=== PATIENT | male | born 1945 | race Caucasian/White ===

== ENCOUNTER 2016-05-07 17:40 | Inpatient (IN) | payer MEDICARE, BC ==
[2016-05-07] MEDS ORDERED: VANCOMYCIN HCL INJ 1000 MG VIAL IV ONE (19:12)
[2016-05-07] MEDS ORDERED: CEFEPIME 1 GM/D5W RTU 50 ML IV ONE (19:13)
--- NOTE | 2016-05-07 19:14 | ER Document Report ---
ED Extremity Problem, Lower - General Chief Complaint: Leg Pain Stated Complaint: RIGHT LEG PAIN, REDNESS, SWELLING Time seen by provider: 19:10 Notes: Patient is a 70-year-old male that comes emergency department with chief complaint of right leg pain with redness to the lower part of the leg, patient has been dealing with this for some times but this is significantly worsened over the past 2 days with increased redness and pain. Patient denies fevers. Patient has a history of diabetes, cellulitis, has had sepsis secondary to cellulitis before. Patient is currently onset or oxime, has had Rocephin shots every other day for the past week. Tetanus is up-to-date within 5 years. Patient denies any other symptoms. TRAVEL OUTSIDE OF THE [place] IN LAST 30 DAYS: No - Related Data Allergies/Adverse Reactions: sulfamethoxazole [From Septra DS] Allergy (Mild, Verified 05/07/16 22:50) Pruritis trimethoprim [From Septra DS] Allergy (Mild, Verified 05/07/16 22:50) Pruritis codeine [Codeine] Allergy (Unknown, Verified 05/07/16 22:50) swelling Past Medical History - General Information source: Patient - Social History Smoking Status: Never Smoker Frequency of alcohol use: None Drug Abuse: None Lives with: Family Family History: Reviewed & Not Pertinent Patient has suicidal ideation: No Patient has homicidal ideation: No - Past Medical History Cardiac Medical History: Reports: Hx Hypercholesterolemia, Hx Hypertension Endocrine Medical History: Reports: Hx Diabetes Mellitus Type 2 Renal/ Medical History: Denies: Hx Peritoneal Dialysis Past Surgical History: Reports: Hx Orthopedic Surgery - left knee, bilateral rotator cuff - Immunizations Hx Diphtheria, Pertussis, Tetanus Vaccination: Yes Hx Pneumococcal Vaccination: 06/25/12 Review of Systems - Review of Systems Constitutional: No symptoms reported EENT: No symptoms reported Cardiovascular: No symptoms reported Respiratory: No symptoms reported Gastrointestinal: No symptoms reported Genitourinary: No symptoms reported Male Genitourinary: No symptoms reported Musculoskeletal: See HPI Skin: See HPI Hematologic/Lymphatic: No symptoms reported Neurological/Psychological: No symptoms reported Physical Exam - Vital signs Vitals: Resp 18 05/07/16 20:00 Interpretation: Normal - General General appearance: Appears well, Alert In distress: None - Patient obese, well-appearing, sitting up in the bed, conversational - HEENT Head: Normocephalic, Atraumatic Eyes: Normal Pupils: PERRL - Respiratory Respiratory status: No respiratory distress Chest status: Nontender Breath sounds: Normal. No: Decreased air movement, Wheezing Chest palpation: Normal - Cardiovascular Rhythm: Regular. No: Tachycardia Heart sounds: Normal auscultation, S1 appreciated, S2 appreciated Murmur: No - Abdominal Inspection: Normal Distension: No distension Bowel sounds: Normal Tenderness: Nontender. No: Tender Organomegaly: No organomegaly - Back Back: Normal, Nontender. No: Tender - Extremities General upper extremity: Normal inspection, Nontender, Normal color, Normal ROM , Normal temperature General lower extremity: Other - Right lower extremity with tenderness, slight edema, warm, erythematous. Erythema extending from just above the ankle and partially up the distal tibial area. Normal distal pulses and sensation, normal range of motion of the knee, unremarkable joint examinations of the ankle , knee, hip. - Neurological Neuro grossly intact: Yes Cognition: Normal Orientation: AAOx4 Lund Coma Scale Eye Opening: Spontaneous Lund Coma Scale Verbal: Oriented Justine Coma Scale Motor: Obeys Commands Lund Coma Scale Total: 15 Speech: Normal Motor strength normal: LUE, RUE, LLE, RLE Sensory: Normal - Psychological Associated symptoms: Normal affect, Normal mood - Skin Skin Temperature: Warm Skin Moisture: Dry Skin Color: Normal Course - Re-evaluation Re-evalutation: Physical exam consistent with lower extremity cellulitis, concern about a patient who has diabetes, recurrent cellulitis, and history of sepsis secondary to cellulitis. Concern also about patient's failure of outpatient therapy with multiple injections of Rocephin and current oral antibiotics. Patient given vancomycin, cefepime, will discuss with hospitalist. Patient reevaluated and no change or new complaints. 05/08/16 Hospitalist recommends service and because patient already been on cephalosporin. This was added. - Vital Signs Vital signs: Temp Pulse Resp BP Pulse Ox 97.8 F 72 16 132/54 H 98 05/08/16 05:03 05/08/16 05:03 05/08/16 05:03 05/08/16 05:03 05/08/16 05:03 - Laboratory Result Diagrams: 05/07/16 21:30 05/07/16 21:30 Laboratory results interpreted by me: 05/07/16 05/07/16 21:30 21:30 WBC 10.6 H RBC 4.34 L Hgb 12.6 L BUN 32 H Glucose 118 H Discharge - Discharge Clinical Impression: Cellulitis of right leg Condition: Stable Disposition: ADMITTED INPATIENT Admitting Provider: Hospitalist Unit Admitted: Telemetry
[2016-05-07] MEDS ORDERED: CEFEPIME 1 GM/D5W RTU 50 ML IV SCH (19:15)
[2016-05-07 21:40] LABS: ABSOLUTE BASOPHILS # (AUTO) 0.1 10^3/uL (0.0-0.2); ABSOLUTE EOSINOPHILS # (AUTO) 0.5 10^3/uL (0.0-0.6); ABSOLUTE LYMPHOCYTES (AUTO) 3.1 10^3/uL (0.5-4.7); ABSOLUTE MONOCYTES (AUTO) 1.2 10^3/uL (0.1-1.4); ABSOLUTE NEUT (AUTO) 5.7 10^3/uL (1.7-8.2); BASOPHILS % (AUTO) 0.7 % (0-2); EOSINOPHILS % (AUTO) 4.7 % (0-6); HEMOGLOBIN 12.6 g/dL (13.5-17.0); HGB HCT DIFFERENCE -0.2; LYMPHOCYTES % (AUTO) 29.7 % (13-45); MEAN CORPUSCULAR HGB CONC 33.2 g/dL (32.0-36.0); MEAN CORPUSCULAR VOLUME 87 fl (80-97); MONOCYTES % (AUTO) 11.4 % (3-13); RED BLOOD COUNT 4.34 10^6/uL (4.35-5.55); RED CELL DISTRIBUTION WIDTH 13.9 % (11.5-14.0); SEGMENTED NEUTROPHILS % (AUTO) 53.5 % (42-78); WHITE BLOOD COUNT 10.6 10^3/uL (4.0-10.5)
[2016-05-07 21:54] LABS: ALANINE AMINOTRANSFERASE 41 U/L (21-72); ALBUMIN 4.1 g/dL (3.5-5.0); ALKALINE PHOSPHATASE 44 U/L (38-126); ANION GAP 12 (5-19); ASPARTATE AMINO TRANSFERASE 28 U/L (17-59); BILIRUBIN,TOTAL 0.4 mg/dL (0.2-1.3); BLOOD UREA NITROGEN 32 mg/dL (7-20); CALCIUM 9.4 mg/dL (8.4-10.2); CARBON DIOXIDE 28 mmol/L (22-30); CHLORIDE 101 mmol/L (98-107); CREATININE RESULT 0.97 mg/dL (0.52-1.25); GLUCOSE 118 mg/dL (75-110); POTASSIUM 4.4 mmol/L (3.6-5.0); TOTAL PROTEIN 6.6 g/dL (6.3-8.2)
[2016-05-07] MEDS ORDERED: CEFEPIME 1 GM/D5W RTU 1 GM/50 ML RTUPB IV ONE (22:44)
[2016-05-08] MEDS ORDERED: PIPERACILLIN/TAZOBACTAM 4.5 GM VIAL IV ONE (02:56)
[2016-05-08] MEDS ORDERED: MAGNESIUM HYDROXIDE SUSP 30 ML UDCUP PO PRN (08:30)
[2016-05-08] MEDS ORDERED: ACETAMINOPHEN 325 MG TABLET PO PRN (08:30)
[2016-05-08] MEDS ORDERED: ONDANSETRON HCL INJ/PF 4 MG/2 ML SDV IV PRN (08:35)
[2016-05-08] MEDS ORDERED: DEXTROSE 50%-WATER 25 GM/50 ML DISP.SYRIN IV PRN ×2 (08:38)
[2016-05-08] MEDS ORDERED: GLUCAGON,HUMAN RECOMB 1 MG INJ IM PRN (08:38)
[2016-05-08] MEDS ORDERED: DEXTROSE 40% GEL 15 GM TUBE PO PRN ×2 (08:38)
[2016-05-08] MEDS ORDERED: VANCOMYCIN HCL 0 MG in DEXTROSE 5%-WATER 250 ML IV NR (08:45)
[2016-05-08] MEDS ORDERED: AMPICILLIN SODIUM/SULBACTAM NA 3 GM in NORMAL SALINE 100 ML IV ONE (09:45)
[2016-05-08] MEDS ORDERED: ENOXAPARIN SODIUM INJ 40 MG/0.4 ML DISP.SYRIN SUBCUT ONE (09:45)
[2016-05-08] MEDS: DOCUSATE SODIUM 100 MG CAPSULE PO SCH (10:26)
[2016-05-08] MEDS ORDERED: CYCLOBENZAPRINE HCL 10 MG TABLET PO PRN (10:58)
[2016-05-08] MEDS ORDERED: INSULIN ASPART 5 UNIT SUBCUT PRN (10:58)
[2016-05-08] MEDS ORDERED: (PENDING PHARMACY ID) (Lisinopril [Prinivil] 20 MG) PO SCH (11:00)
[2016-05-08] MEDS ORDERED: AMPICILLIN SODIUM/SULBACTAM NA 3 GM in NORMAL SALINE 100 ML IV SCH (12:00)
[2016-05-08] MEDS ORDERED: VENLAFAXINE HCL 75 MG CAP.SR.24H PO ONE (12:00)
[2016-05-08] MEDS ORDERED: ASPIRIN 81 MG TABLET, CHEWABLE PO ONE (12:00)
[2016-05-08] MEDS ORDERED: FUROSEMIDE 20 MG TABLET PO ONE (12:00)
--- NOTE | 2016-05-08 13:18 | PDOC H&P ---
History of Present Illness Admission Date/PCP: 05/08/16 08:32 Patient complains of: pain and swelling in Rt leg History of Present Illness: ROWAN ISLAS is a 70 [address] of Dr[address] Vickers who presented to the emergency department with progressive swelling and pain in the right lower extremity with some erythema. Apparently this started sometime around Thanks[place] and has been waxing and waning ever since. He's been on 2 rounds of antibiotics and gets some improvement with each but as soon as the antibiotics stopped the redness and swelling return. Shortly before the right lower extremity complaints he started with a red intensely pruritic, nonblanching rash tracks up his right thigh and has been treated with various topical creams and ointments and seen by dermatology who intends to biopsy the lesions some point in the near future. Patient had a very similar episode on his left lower extremity that required a seven-day stay in the ICU due to sepsis from cellulitis. No offending organism was ever identified he improved after 7 days of IV antibiotics and was sent home on an unknown type oral antibiotic. He is currently receiving Rocephin injections followed by cephalexin oral from his primary provider. He describes the pain as sharp stabbing radiating up toward his knee and the associated erythema and swelling. No fevers chills or other systemic symptoms. He is diabetic but noticed no difference in his usual blood sugars, he uses a Medtronic insulin pump with total daily insulin use of approximately 90 units. Evaluation in the emergency department shows a progressive cellulitis failing outpatient therapy we were asked to admit for further evaluation and management. Past Medical History Cardiac Medical History: Reports: Hyperlipidema, Hypertension Endocrine Medical History: Reports: Diabetes Mellitus Type 2 Skin Medical History: Reports: Other - Previous soft tissue infection of the left lower extremity. Past Surgical History Past Surgical History: Reports: Orthopedic Surgery - left knee, bilateral rotator cuff Social History Information Source: Patient Lives with: Family Smoking Status: Never Smoker Frequency of Alcohol Use: None Hx Recreational Drug Use: No Hx Prescription Drug Abuse: No - Advance Directive Resuscitation Status: Full Code Family History Family History: Reviewed & Not Pertinent Parental Family History Reviewed: Yes Children Family History Reviewed: Yes Sibling(s) Family History Reviewed.: Yes Medication/Allergy Home Medications: Aspirin [Aspirin 81 mg Chewable Tablet] 81 mg PO DAILY 06/24/12 Furosemide [Lasix 20 mg Tablet] 20 mg PO QAM 06/24/12 Insulin Aspart [Novolog Insulin (Aspart) 100 unit/mL] 5 unit SUBCUT ASDIR PRN Metformin HCl [Glumetza] 1,000 mg PO BID 06/24/12 Venlafaxine HCl ER [Effexor Xr 75 mg Cap.sr] 150 mg PO DAILY 06/24/12 Cefuroxime Axetil [Ceftin 500 mg Tablet] 1 tab PO BID 05/08/16 Clobetasol Propionate [Clobetasol Propionate Ointment] 1 applic TP BID 05/08/16 Cyclobenzaprine HCl [Flexeril 10 mg Tablet] 10 mg PO HSP PRN 05/08/16 Lisinopril [Prinivil] 20 mg PO DAILY 05/08/16 Allergies/Adverse Reactions: sulfamethoxazole [From Septra DS] Allergy (Mild, Verified 05/07/16 22:50) Pruritis trimethoprim [From Decra DS] Allergy (Mild, Verified 05/07/16 22:50) Pruritis codeine [Codeine] Allergy (Unknown, Verified 05/07/16 22:50) swelling Review of Systems Constitutional: ABSENT: chills, fever(s), headache(s), weight gain, weight loss Eyes: ABSENT: visual disturbances Ears: ABSENT: hearing changes Cardiovascular: PRESENT: edema - Right greater than left. ABSENT: chest pain, dyspnea on exertion, orthropnea, palpitations Respiratory: ABSENT: cough, hemoptysis Gastrointestinal: ABSENT: abdominal pain, constipation, diarrhea, hematemesis, hematochezia, nausea, vomiting Genitourinary: ABSENT: dysuria, hematuria Musculoskeletal: ABSENT: joint swelling Integumentary: PRESENT: rash - Right lower extremity. ABSENT: wounds Neurological: ABSENT: abnormal gait, abnormal speech, confusion, dizziness, focal weakness, syncope Psychiatric: ABSENT: anxiety, depression, homidical ideation, suicidal ideation Endocrine: ABSENT: cold intolerance, heat intolerance, polydipsia, polyuria Hematologic/Lymphatic: ABSENT: easy bleeding, easy bruising Physical Exam Vital Signs: Temp Pulse Resp BP Pulse Ox 98.0 F 82 18 137/55 H 98 05/08/16 11:24 05/08/16 11:24 05/08/16 11:24 05/08/16 11:24 05/08/16 11:24 Intake & Output 05/07/16 05/08/16 05/09/16 06:59 06:59 06:59 Intake Total 800 Balance 800 Weight 115 kg General appearance: PRESENT: no acute distress, obese, well-developed Head exam: PRESENT: atraumatic, normocephalic Eye exam: PRESENT: conjunctiva pink, EOMI, PERRLA. ABSENT: scleral icterus Mouth exam: PRESENT: moist, tongue midline Neck exam: ABSENT: carotid bruit, JVD, lymphadenopathy, thyromegaly Respiratory exam: PRESENT: clear to auscultation prabhakar. ABSENT: rales, rhonchi, wheezes Cardiovascular exam: PRESENT: RRR. ABSENT: diastolic murmur, rubs, systolic murmur Pulses: PRESENT: normal dorsalis pedis pul Vascular exam: PRESENT: normal capillary refill GI/Abdominal exam: PRESENT: normal bowel sounds, soft. ABSENT: distended, guarding, rebound, tenderness Rectal exam: PRESENT: deferred Extremities exam: PRESENT: full ROM. ABSENT: calf tenderness, clubbing, pedal edema Neurological exam: PRESENT: alert, awake, oriented to person, oriented to place , oriented to time, oriented to situation, CN II-XII grossly intact. ABSENT: motor sensory deficit Psychiatric exam: PRESENT: appropriate affect, normal mood. ABSENT: homicidal ideation, suicidal ideation Skin exam: PRESENT: dry, intact, rash - 1. Fine, lacy, well-circumscribed approximately 3-4 mm in greatest dimension, too numerous to count, erythematous and nonblanching nonpalpable rash tracking up the right lateral leg in a band. 2. Right lower extremity pretibial erythematous, hot to the touch, tender to touch cellulitis evident. No lesions or bullae., warm. ABSENT: cyanosis Results Laboratory Results: Labs- Last Values WBC 10.6 10^3/uL (4.0-10.5) H 05/07/16 21:30 RBC 4.34 10^6/uL (4.35-5.55) L 05/07/16 21:30 Hgb 12.6 g/dL (13.5-17.0) L 05/07/16 21:30 Hct 38.0 % (37.9-51.0) 05/07/16 21:30 MCV 87 fl (80-97) 05/07/16 21:30 MCH 29.0 pg (27.0-33.4) 05/07/16 21:30 MCHC 33.2 g/dL (32.0-36.0) 05/07/16 21:30 RDW 13.9 % (11.5-14.0) 05/07/16 21:30 Plt Count 213 10^3/uL (150-450) 05/07/16 21:30 Seg Neutrophils % 53.5 % (42-78) 05/07/16 21:30 Lymphocytes % 29.7 % (13-45) 05/07/16 21:30 Monocytes % 11.4 % (3-13) 05/07/16 21:30 Eosinophils % 4.7 % (0-6) 05/07/16: Basophils % 0.7 % (0-2) 05/07/16 21:30 Absolute Neutrophils 5.7 10^3/uL (1.7-8.2) 05/07/16 21: Absolute Lymphocytes 3.1 10^3/uL (0.5-4.7) 05/07/16 21:30 Absolute Monocytes 1.2 10^3/uL (0.1-1.4) 05/07/16 21:30 Absolute Eosinophils 0.5 10^3/uL (0.0-0.6) 05/07/16: Absolute Basophils 0.1 10^3/uL (0.0-0.2) 05/07/16 21:30 Sodium 141.0 mmol/L (137-145) 05/07/16 21:30 Potassium 4.4 mmol/L (3.6-5.0) 05/07/16 21:30 Chloride 101 mmol/L (98-107) 05/07/16 21:30 Carbon Dioxide 28 mmol/L (22-30) 05/07/16 21:30 Anion Gap 12 (5-19) 05/07/16 21:30 BUN 32 mg/dL (7-20) H 05/07/16 21:30 Creatinine 0.97 mg/dL (0.52-1.25) 05/07/16 21:30 Est GFR ( Amer) > 60 (>60) 05/07/16 21:30 Est GFR (Non-Af Amer) > 60 (>60) 05/07/16 21:30 Glucose 118 mg/dL (75-110) H 05/07/16 21:30 Calcium 9.4 mg/dL (8.4-10.2) 05/07/16 21:30 Total Bilirubin 0.4 mg/dL (0.2-1.3) 05/07/16 21:30 Direct Bilirubin 0.0 mg/dL (0.0-0.3) 05/07/16 21:30 AST 28 U/L (17-59) 05/07/16 21:30 ALT 41 U/L (21-72) 05/07/16 21:30 Alkaline Phosphatase 44 U/L (38-126) 05/07/16 21:30 C-Reactive Protein 5.7 mg/L (<10.0) 05/07/16 21: Total Protein 6.6 g/dL (6.3-8.2) 05/07/16 21: Albumin 4.1 g/dL (3.5-5.0) 05/07/16 21:30 Assessment & Plan - Diagnosis (1) Cellulitis of right leg Is this a current diagnosis for this admission?: YesPlan: Probable staph failing Rocephin therapy, unclear if MRSA. Given his diabetes though he is at risk for polymicrobial infection including gram-negative organisms. We'll start with Unasyn and vancomycin for the first 48 hours and taper per clinical course. Unfortunately there is no open wound or lesions to culture at this time. We'll send blood cultures. 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 Patient is well versed at managing his own sugars. (3) Hypertension Qualifiers: Hypertension type: essential hypertension Qualified Code(s): I10 - Essential (primary) hypertension Is this a current diagnosis for this admission?: YesPlan: Titrate his regimen as needed. (4) Morbid obesity with BMI of 40.0-44.9, adult Is this a current diagnosis for this admission?: Yes - Time Time Spent: 50 to 70 Minutes Anticipated discharge: Home Within: within 72 hours - Inpatient Certification Based on my medical assessment, after consideration of the patient's comorbidities, presenting symptoms, or acuity I expect that the services needed warrant INPATIENT care.: Yes I certify that my determination is in accordance with my understanding of Medicare's requirements for reasonable and necessary INPATIENT services [42 CFR 412.3e].: Yes Medical Necessity: Failure to Improve With Outpatient Therapy, Need for IV Antibiotics
[2016-05-08] MEDS ORDERED: LISINOPRIL 10 MG TABLET PO ONE (14:30)
[2016-05-08] MEDS: AMPICILLIN SODIUM/SULBACTAM NA 3 GM in NORMAL SALINE 100 ML IV SCH ×2 (15:55→20:27)
[2016-05-08] MEDS: VANCOMYCIN HCL 1,500 MG in DEXTROSE 5%-WATER 250 ML IV SCH (17:43)
[2016-05-08] MEDS: LACTOBACILLUS ACIDOPHILUS 250 MG TAB PO SCH (17:46)
[2016-05-09] MEDS: AMPICILLIN SODIUM/SULBACTAM NA 3 GM in NORMAL SALINE 100 ML IV SCH ×4 (04:17→20:52)
[2016-05-09 05:14] LABS: ABSOLUTE BASOPHILS # (AUTO) 0.1 10^3/uL (0.0-0.2); ABSOLUTE EOSINOPHILS # (AUTO) 0.5 10^3/uL (0.0-0.6); ABSOLUTE LYMPHOCYTES (AUTO) 3.1 10^3/uL (0.5-4.7); ABSOLUTE NEUT (AUTO) 4.9 10^3/uL (1.7-8.2); BASOPHILS % (AUTO) 0.8 % (0-2); HEMATOCRIT 39.3 % (37.9-51.0); HEMOGLOBIN 12.6 g/dL (13.5-17.0); HGB HCT DIFFERENCE -1.5; LYMPHOCYTES % (AUTO) 32.4 % (13-45); MEAN CORPUSCULAR HEMOGLOBIN 28.6 pg (27.0-33.4); MEAN CORPUSCULAR HGB CONC 32.2 g/dL (32.0-36.0); MEAN CORPUSCULAR VOLUME 89 fl (80-97); MONOCYTES % (AUTO) 10.4 % (3-13); RED BLOOD COUNT 4.42 10^6/uL (4.35-5.55); RED CELL DISTRIBUTION WIDTH 13.6 % (11.5-14.0); SEGMENTED NEUTROPHILS % (AUTO) 51.4 % (42-78); WHITE BLOOD COUNT 9.5 10^3/uL (4.0-10.5)
[2016-05-09] MEDS: VANCOMYCIN HCL 1,500 MG in DEXTROSE 5%-WATER 250 ML IV SCH ×2 (05:23→17:03)
[2016-05-09] MEDS: LANSOPRAZOLE 30 MG TAB.RAP.DR PO SCH (05:23)
[2016-05-09 05:42] LABS: ANION GAP 13 (5-19); BLOOD UREA NITROGEN 33 mg/dL (7-20); C-REACTIVE PROTEIN 11.2 mg/L (<10.0); CALCIUM 9.5 mg/dL (8.4-10.2); CARBON DIOXIDE 25 mmol/L (22-30); CHLORIDE 101 mmol/L (98-107); CREATININE RESULT 1.08 mg/dL (0.52-1.25); GLUCOSE 188 mg/dL (75-110); POTASSIUM 4.7 mmol/L (3.6-5.0); SODIUM 139.2 mmol/L (137-145)
[2016-05-09] MEDS: ENOXAPARIN SODIUM INJ 40 MG/0.4 ML DISP.SYRIN SUBCUT SCH (09:26)
[2016-05-09] MEDS: DOCUSATE SODIUM 100 MG CAPSULE PO SCH (09:27)
[2016-05-09] MEDS: LACTOBACILLUS ACIDOPHILUS 250 MG TAB PO SCH ×2 (09:28→17:06)
[2016-05-09] MEDS: FUROSEMIDE 20 MG TABLET PO SCH (09:29)
[2016-05-09] MEDS: LISINOPRIL 10 MG TABLET PO SCH (09:29)
[2016-05-09] MEDS: VENLAFAXINE HCL 75 MG CAP.SR.24H PO SCH (09:29)
[2016-05-09] MEDS: ASPIRIN 81 MG TABLET, CHEWABLE PO SCH (09:30)
[2016-05-09] MEDS ORDERED: METFORMIN HCL 1000 MG PO SCH (10:00)
--- NOTE | 2016-05-09 12:45 | PDOC PROGRESS REPORT ---
Subjective Progress Note for:: 05/09/16 Subjective:: Patient states she's feeling well He still has significant swelling in his right lower extremity It is minimally erythematous, there is minimal warmth to touch Patient appears very comfortable No fever no chills Physical Exam Vital Signs: Temp Pulse Resp BP Pulse Ox 97.7 F 83 16 138/53 H 99 05/09/16 11:12 05/09/16 11:12 05/09/16 11:12 05/09/16 11:12 05/09/16 11:12 Intake & Output 05/08/16 05/09/16 05/10/16 00:59 00:59 00:59 Intake Total 1250 669 Balance 1250 669 Weight 115 kg 114.9 kg General appearance: PRESENT: no acute distress Head exam: PRESENT: atraumatic, normocephalic Eye exam: PRESENT: conjunctiva pink, EOMI, PERRLA. ABSENT: scleral icterus Respiratory exam: PRESENT: clear to auscultation prabhakar. ABSENT: rales, rhonchi, wheezes Cardiovascular exam: PRESENT: RRR. ABSENT: diastolic murmur, rubs, systolic murmur Pulses: PRESENT: normal dorsalis pedis pul GI/Abdominal exam: PRESENT: normal bowel sounds, soft. ABSENT: distended, guarding, mass, organolmegaly, rebound, tenderness Extremities exam: PRESENT: other - Right lower extremity Shows at least 1-2+ edema Swelling of the calf Homans negative The skin is slightly warm to touch; there is minimal minimal erythema Neurological exam: PRESENT: alert, awake, oriented to person, oriented to place , oriented to time, oriented to situation, CN II-XII grossly intact. ABSENT: motor sensory deficit Results Laboratory Results: 05/09/16 04:19 05/09/16 04:19 05/09/16 05/09/16 04:19 04:19 WBC 9.5 RBC 4.42 Hgb 12.6 L Hct 39.3 MCV 89 MCH 28.6 MCHC 32.2 RDW 13.6 Plt Count 199 Seg Neutrophils % 51.4 Lymphocytes % 32.4 Monocytes % 10.4 Eosinophils % 5.0 Basophils % 0.8 Absolute Neutrophils 4.9 Absolute Lymphocytes 3.1 Absolute Monocytes 1.0 Absolute Eosinophils 0.5 Absolute Basophils 0.1 Sodium 139.2 Potassium 4.7 Chloride 101 Carbon Dioxide 25 Anion Gap 13 BUN 33 H Creatinine 1.08 Est GFR ( Amer) > 60 Est GFR (Non-Af Amer) > 60 Glucose 188 H Calcium 9.5 C-Reactive Protein 11.2 H Impressions: Venous Doppler Study 05/08/16 00:00 IMPRESSION: NO EVIDENCE DVT OR SVT IN THE RIGHT LEG. Assessment & Plan - Diagnosis (1) Stasis dermatitis of both legs Is this a current diagnosis for this admission?: YesPlan: With purplish discoloration of the skin Edema of the right lower extremity possibly secondary to stasis Discussed the case with Dr. 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 Vickers He failed outpatient therapy ? With the be candidate for PICC line and antibiotic therapy at home Reevaluate in a.m. Time Spent with patient: 25-34 minutes Within: within 48 hours
[2016-05-09] MEDS ORDERED: METFORMIN HCL 500 MG TABLET PO ONE (14:00)
[2016-05-09] MEDS: METFORMIN HCL 500 MG TABLET PO SCH (17:06)
[2016-05-09] MEDS: OXYCODONE-ACETAMINOPHEN 5-325 MG TABLET PO PRN (22:55)
[2016-05-10] MEDS: AMPICILLIN SODIUM/SULBACTAM NA 3 GM in NORMAL SALINE 100 ML IV SCH ×4 (03:30→21:31)
[2016-05-10] MEDS: LANSOPRAZOLE 30 MG TAB.RAP.DR PO SCH (06:10)
[2016-05-10] MEDS: VANCOMYCIN HCL 1,500 MG in DEXTROSE 5%-WATER 250 ML IV SCH ×2 (06:11→17:21)
[2016-05-10 06:37] LABS: CREATININE RESULT 1.02 mg/dL (0.52-1.25)
[2016-05-10] MEDS: METFORMIN HCL 500 MG TABLET PO SCH ×2 (09:24→17:21)
[2016-05-10] MEDS: ASPIRIN 81 MG TABLET, CHEWABLE PO SCH (09:24)
[2016-05-10] MEDS: LACTOBACILLUS ACIDOPHILUS 250 MG TAB PO SCH ×2 (09:24→17:22)
[2016-05-10] MEDS: FUROSEMIDE 20 MG TABLET PO SCH (09:24)
[2016-05-10] MEDS: VENLAFAXINE HCL 75 MG CAP.SR.24H PO SCH (09:25)
[2016-05-10] MEDS: LISINOPRIL 10 MG TABLET PO SCH (09:25)
[2016-05-10] MEDS: ENOXAPARIN SODIUM INJ 40 MG/0.4 ML DISP.SYRIN SUBCUT SCH (09:26)
[2016-05-10] MEDS: DOCUSATE SODIUM 100 MG CAPSULE PO SCH (09:26)
--- NOTE | 2016-05-10 17:07 | PDOC CONSULTATION ---
Consultation Consult Date: 05/10/16 Attending physician:: ROSI SORENSON Consult reason:: For some cellulitis and swelling in the right lower extremity. History of Present Illness Admission Date/PCP: 05/08/16 08:32 History of Present Illness: Swelling and redness and cellulitis in the right leg since 2015. Treated with several rounds of oral antibiotics. Temporary improvement only. Moderate pain. Many such prior episodes. Last of the left leg in the fall of 2014. Past Medical History Cardiac Medical History: Reports: Hyperlipidema, Hypertension Endocrine Medical History: Reports: Diabetes Mellitus Type 2 Skin Medical History: Reports: Other - Previous soft tissue infection of the left lower extremity. Past Surgical History Past Surgical History: Reports: Orthopedic Surgery - left knee, bilateral rotator cuff Social History Lives with: Family Smoking Status: Never Smoker Frequency of Alcohol Use: None Hx Recreational Drug Use: No Hx Prescription Drug Abuse: No - Advance Directive Resuscitation Status: Full Code Family History Family History: Reviewed & Not Pertinent Parental Family History Reviewed: No Children Family History Reviewed: No Sibling(s) Family History Reviewed.: No Medication/Allergy Home Medications: Aspirin [Aspirin 81 mg Chewable Tablet] 81 mg PO DAILY 06/24/12 Furosemide [Lasix 20 mg Tablet] 20 mg PO QAM 06/24/12 Insulin Aspart [Novolog Insulin (Aspart) 100 unit/mL] 5 unit SUBCUT ASDIR PRN Metformin HCl [Glumetza] 1,000 mg PO BID 06/24/12 Venlafaxine HCl ER [Effexor Xr 75 mg Cap.sr] 150 mg PO DAILY 06/24/12 Cefuroxime Axetil [Ceftin 500 mg Tablet] 1 tab PO BID 05/08/16 Clobetasol Propionate [Clobetasol Propionate Ointment] 1 applic TP BID 05/08/16 Cyclobenzaprine HCl [Flexeril 10 mg Tablet] 10 mg PO HSP PRN 05/08/16 Lisinopril [Prinivil] 20 mg PO DAILY 05/08/16 Allergies/Adverse Reactions: sulfamethoxazole [From Septra DS] Allergy (Mild, Verified 05/07/16 22:50) Pruritis trimethoprim [From Septra DS] Allergy (Mild, Verified 05/07/16 22:50) Pruritis codeine [Codeine] Allergy (Unknown, Verified 05/07/16 22:50) swelling Physical Exam Vital Signs: Temp Pulse Resp BP Pulse Ox 97.9 F 78 18 123/47 L 97 05/10/16 12:07 05/10/16 14:00 05/10/16 12:07 05/10/16 12:07 05/10/16 12:07 Intake & Output 05/09/16 05/10/16 05/11/16 06:59 06:59 06:59 Intake Total 1918 2702 Balance 1918 2702 Weight 114.9 kg 111.8 kg Additional comments: Constitutional: A well-developed well-nourished gentleman, moderately increased body mass index. No acute distress. Eyes: Mucous membranes pink and moist, sclerae anicteric, pupils react normally. Oropharynx: Dentition intact, tongue normal. Respiratory: No shortness of breath or wheezing. Breath sounds are normal and equal. Cardiac: Heart sounds normal, no murmurs, no increased JVP. Peripheral edema. Extremities: Upper extremities shows normal range of movement and pulses. Lower extremities show stasis dermatitis, hyperpigmentation, fragile thickened skin in the medial legs. On the right side there is erythema which seems to be receding. Psychiatric: judgment, memory, insight seem normal. Mood is normal, appropriate and pleasant Results Laboratory Results: 05/09/16 04:19 05/10/16 05:56 05/10/16 05:56 Creatinine 1.02 Est GFR ( Amer) > 60 Est GFR (Non-Af Amer) > 60 Impressions: Venous Doppler Study 05/08/16 00:00 IMPRESSION: NO EVIDENCE DVT OR SVT IN THE RIGHT LEG. Assessment & Plan - Diagnosis (1) Cellulitis of right leg Is this a current diagnosis for this admission?: Yes (2) Stasis dermatitis of both legs Is this a current diagnosis for this admission?: Yes (3) Diabetes mellitus type II, controlled Qualifiers: Diabetes mellitus complication status: without complication Diabetes mellitus medical terminologist insulin use: with medical terminologist use Qualified Code(s): E11.9 - Type 2 diabetes mellitus without complications Is this a current diagnosis for this admission?: Yes (4) Hypertension Qualifiers: Hypertension type: essential hypertension Qualified Code(s): I10 - Essential (primary) hypertension Is this a current diagnosis for this admission?: Yes (5) Morbid obesity with BMI of 40.0-44.9, adult Is this a current diagnosis for this admission?: Yes - Plan Summary Plan Summary: In this patient with several bouts of cellulitis, stasis dermatitis, venous hypertension the following is recommended. #1 compression stockings 20-30 mmHg , knee-high. All day and removed in the evenings. #2 he will benefit from sequential compression and we will try to order to this for him once he is out of hospital and in office. In the meanwhile sequential compression devices are to be used in hospital. #3 he should be able to be discharged within the next day or 2 and I will continue a course of antibiotics for 10 days. #4 attention to diabetes, this should be well controlled. #5 optimal weight control. #6 follow up in office by appointment after discharge.
--- NOTE | 2016-05-10 18:32 | PDOC PROGRESS REPORT ---
Subjective Progress Note for:: 05/10/16 Subjective:: feeling well swelling till persistent of right lower extremity , but less pain Physical Exam Vital Signs: Temp Pulse Resp BP Pulse Ox 97.6 F 80 18 117/48 L 99 05/10/16 16:03 05/10/16 16:03 05/10/16 16:03 05/10/16 16:03 05/10/16 16:03 Intake & Output 05/09/16 05/10/16 05/11/16 00:59 00:59 00:59 Intake Total 1250 2717 1402 Balance 1250 2717 1402 Weight 115 kg 114.9 kg 111.8 kg General appearance: PRESENT: no acute distress, well-developed, well-nourished Head exam: PRESENT: atraumatic, normocephalic Eye exam: PRESENT: conjunctiva pink, EOMI, PERRLA. ABSENT: scleral icterus Ear exam: PRESENT: normal external ear exam Mouth exam: PRESENT: moist, tongue midline Neck exam: ABSENT: carotid bruit, JVD, lymphadenopathy, thyromegaly Respiratory exam: PRESENT: clear to auscultation prabhakar. ABSENT: rales, rhonchi, wheezes Cardiovascular exam: PRESENT: RRR. ABSENT: diastolic murmur, rubs, systolic murmur Pulses: PRESENT: normal dorsalis pedis pul Vascular exam: PRESENT: normal capillary refill GI/Abdominal exam: PRESENT: normal bowel sounds, soft. ABSENT: distended, guarding, mass, organolmegaly, rebound, tenderness Rectal exam: PRESENT: deferred Extremities exam: PRESENT: full ROM, +1 edema, other - edema right lower extremity calf is tense stasis dematitis skin changes. ABSENT: calf tenderness, clubbing, pedal edema Neurological exam: PRESENT: alert, awake, oriented to person, oriented to place , oriented to time, oriented to situation, CN II-XII grossly intact. ABSENT: motor sensory deficit Psychiatric exam: PRESENT: appropriate affect, normal mood. ABSENT: homicidal ideation, suicidal ideation Skin exam: PRESENT: dry, intact, warm. ABSENT: cyanosis, rash Results Laboratory Results: 05/09/16 04:19 05/10/16 05:56 05/10/16 05:56 Creatinine 1.02 Est GFR ( Amer) > 60 Est GFR (Non-Af Amer) > 60 Impressions: Venous Doppler Study 05/08/16 00:00 IMPRESSION: NO EVIDENCE DVT OR SVT IN THE RIGHT LEG. Assessment & Plan - Diagnosis (1) Stasis dermatitis of both legs Is this a current diagnosis for this admission?: Yes (2) Cellulitis of right leg Is this a current diagnosis for this admission?: Yes (3) DVT prophylaxis Is this a current diagnosis for this admission?: Yes (4) Diabetes mellitus type II, controlled Qualifiers: Diabetes mellitus complication status: without complication Diabetes mellitus nursing home insulin use: with nursing home use Qualified Code(s): E11.9 - Type 2 diabetes mellitus without complications Is this a current diagnosis for this admission?: Yes (5) Hypertension Qualifiers: Hypertension type: essential hypertension Qualified Code(s): I10 - Essential (primary) hypertension Is this a current diagnosis for this admission?: Yes (6) Morbid obesity with BMI of 40.0-44.9, adult Is this a current diagnosis for this admission?: Yes - Time Time Spent with patient: appreciate Dr Vickers note will discharge in 24- 48 hours Time Spent with patient: 25-34 minutes Within: within 24 hours
[2016-05-10] MEDS: OXYCODONE-ACETAMINOPHEN 5-325 MG TABLET PO PRN (21:31)
[2016-05-11] MEDS: AMPICILLIN SODIUM/SULBACTAM NA 3 GM in NORMAL SALINE 100 ML IV SCH ×2 (02:26→09:48)
[2016-05-11] MEDS: LANSOPRAZOLE 30 MG TAB.RAP.DR PO SCH (05:59)
[2016-05-11] MEDS: VANCOMYCIN HCL 1,500 MG in DEXTROSE 5%-WATER 250 ML IV SCH (05:59)
[2016-05-11 09:32] VITALS: BP 125/62
[2016-05-11] MEDS: LISINOPRIL 10 MG TABLET PO SCH (09:47)
[2016-05-11] MEDS: METFORMIN HCL 500 MG TABLET PO SCH (09:47)
[2016-05-11] MEDS: ASPIRIN 81 MG TABLET, CHEWABLE PO SCH (09:47)
[2016-05-11] MEDS: VENLAFAXINE HCL 75 MG CAP.SR.24H PO SCH (09:47)
[2016-05-11] MEDS: FUROSEMIDE 20 MG TABLET PO SCH (09:47)
[2016-05-11] MEDS: LACTOBACILLUS ACIDOPHILUS 250 MG TAB PO SCH (09:48)
[2016-05-11] MEDS: DOCUSATE SODIUM 100 MG CAPSULE PO SCH (09:48)
[2016-05-11] MEDS: ENOXAPARIN SODIUM INJ 40 MG/0.4 ML DISP.SYRIN SUBCUT SCH (09:48)
--- NOTE | 2016-05-11 10:40 | PDOC DISCHARGE SUMMARY ---
General - Admit/Disc Date/PCP Admission Date/Primary Care Provider: 05/08/16 08:32 Discharge Date: 05/11/16 - Discharge Diagnosis (1) Stasis dermatitis of both legs Is this a current diagnosis for this admission?: Yes (2) Cellulitis of right leg Is this a current diagnosis for this admission?: Yes (3) DVT prophylaxis Is this a current diagnosis for this admission?: Yes (4) Diabetes mellitus type II, controlled Is this a current diagnosis for this admission?: Yes (5) Hypertension Is this a current diagnosis for this admission?: Yes (6) Morbid obesity with BMI of 40.0-44.9, adult Is this a current diagnosis for this admission?: Yes - Additional Information Resuscitation Status: Full Code Discharge Diet: Diabetic Discharge Activity: Activity As Tolerated Home Medications: Aspirin [Aspirin 81 mg Chewable Tablet] 81 mg PO DAILY 06/24/12 Furosemide [Lasix 20 mg Tablet] 20 mg PO QAM 06/24/12 Insulin Aspart [Novolog Insulin (Aspart) 100 unit/mL] 5 unit SUBCUT ASDIR PRN Metformin HCl [Glumetza] 1,000 mg PO BID 06/24/12 Venlafaxine HCl ER [Effexor Xr 75 mg Cap.sr] 150 mg PO DAILY 06/24/12 Cefuroxime Axetil [Ceftin 500 mg Tablet] 1 tab PO BID 05/08/16 Clobetasol Propionate [Clobetasol Propionate Ointment] 1 applic TP BID 05/08/16 Cyclobenzaprine HCl [Flexeril 10 mg Tablet] 10 mg PO HSP PRN 05/08/16 Lisinopril [Prinivil] 20 mg PO DAILY 05/08/16 Acidoph/L.bulg/Bif.b/S.thermop [Bacid Caplet] 1 each PO BID #20 tablet 05/11/16 Amox Tr/Potassium Clavulanate [Augmentin 875-125 mg Tablet] 1 tab PO BID #20 tablet 05/11/16 History of Present Illness Patient complains of: Swelling and pain right lower extremity History of Present Illness: ROWAN ISLAS is a 70 year old male of Dr. Vickers who presented to the emergency department with progressive swelling and pain in the right lower extremity with some erythema. Apparently this started sometime around and has been waxing and waning ever since. He's been on 2 rounds of antibiotics and gets some improvement with each but as soon as the antibiotics stopped the redness and swelling return. Shortly before the right lower extremity complaints he started with a red intensely pruritic, nonblanching rash tracks up his right thigh and has been treated with various topical creams and ointments and seen by dermatology who intends to biopsy the lesions some point in the near future. Patient had a very similar episode on his left lower extremity that required a seven-day stay in the ICU due to sepsis from cellulitis. No offending organism was ever identified he improved after 7 days of IV antibiotics and was sent home on an unknown type oral antibiotic. He is currently receiving Rocephin injections followed by cephalexin oral from his primary provider. He describes the pain as sharp stabbing radiating up toward his knee and the associated erythema and swelling. No fevers chills or other systemic symptoms. He is diabetic but noticed no difference in his usual blood sugars, he uses a [employer] insulin pump with total daily insulin use of approximately 90 units. Evaluation in the emergency department shows a progressive cellulitis failing outpatient therapy we were asked to admit for further evaluation and management. Hospital Course Hospital Course: Patient is a 70-year-old male was admitted with cellulitis right lower extremity Patient had a history of recurrent cellulitis and stasis dermatitis Upon evaluation in the ED the neck was found swollen with some erythema broad-spectrum antibiotics were initiated with Unasyn and vancomycin. Patient had negative DVT studies He improved somewhat with antibiotics the leg remains swollen but the redness disappeared He was evaluated by Dr. Ericka Vickers and was found well enough to be discharged on by mouth antibiotics And referred to the office as an outpatient Patient was advised to wear teds and keep his lower extremity elevated when he sits Patient did not have a fever or leukocytosis Physical Exam Vital Signs: Temp Pulse Resp BP Pulse Ox 97.4 F 71 16 125/62 100 05/11/16 09:25 05/11/16 09:25 05/11/16 09:25 05/11/16 09:25 05/11/16 09:25 Intake & Output 05/10/16 05/11/16 05/12/16 00:59 00:59 00:59 Intake Total 5849 2154 710 Balance 2718 2716 710 Weight 114.9 kg 111.8 kg 113.3 kg General appearance: PRESENT: no acute distress, well-developed, well-nourished Head exam: PRESENT: atraumatic, normocephalic Eye exam: PRESENT: conjunctiva pink, EOMI, PERRLA. ABSENT: scleral icterus Ear exam: PRESENT: normal external ear exam Mouth exam: PRESENT: moist, tongue midline Neck exam: ABSENT: carotid bruit, JVD, lymphadenopathy, thyromegaly Respiratory exam: PRESENT: clear to auscultation prabhakar. ABSENT: rales, rhonchi, wheezes Cardiovascular exam: PRESENT: RRR. ABSENT: diastolic murmur, rubs, systolic murmur Pulses: PRESENT: normal dorsalis pedis pul Vascular exam: PRESENT: normal capillary refill GI/Abdominal exam: PRESENT: normal bowel sounds, soft. ABSENT: distended, guarding, mass, organolmegaly, rebound, tenderness Rectal exam: PRESENT: deferred Extremities exam: PRESENT: full ROM, other - Right lower extremity still shows some swelling in ;the calf is tense on palpation The skin shows hyperpigmentation on zhu. ABSENT: calf tenderness, clubbing, pedal edema Neurological exam: PRESENT: alert, awake, oriented to person, oriented to place , oriented to time, oriented to situation, CN II-XII grossly intact. ABSENT: motor sensory deficit Psychiatric exam: PRESENT: appropriate affect, normal mood. ABSENT: homicidal ideation, suicidal ideation Skin exam: PRESENT: dry, intact, warm. ABSENT: cyanosis, rash Results Laboratory Results: 05/09/16 04:19 05/10/16 05:56 Laboratory WBC 9.5 10^3/uL (4.0-10.5) 05/09/16 04:19 RBC 4.42 10^6/uL (4.35-5.55) 05/09/16 04:19 Hgb 12.6 g/dL (13.5-17.0) L 05/09/16 04:19 Hct 39.3 % (37.9-51.0) 05/09/16 04:19 MCV 89 fl (80-97) 05/09/16 04:19 MCH 28.6 pg (27.0-33.4) 05/09/16 04:19 MCHC 32.2 g/dL (32.0-36.0) 05/09/16 04:19 RDW 13.6 % (11.5-14.0) 05/09/16 04:19 Plt Count 199 10^3/uL (150-450) 05/09/16 04:19 Seg Neutrophils % 51.4 % (42-78) 05/09/16 04:19 Lymphocytes % 32.4 % (13-45) 05/09/16 04:19 Monocytes % 10.4 % (3-13) 05/09/16 04:19 Eosinophils % 5.0 % (0-6) 05/09/16 04:19 Basophils % 0.8 % (0-2) 05/09/16 04:19 Absolute Neutrophils 4.9 10^3/uL (1.7-8.2) 05/09/16 04:19 Absolute Lymphocytes 3.1 10^3/uL (0.5-4.7) 05/09/16 04:19 Absolute Monocytes 1.0 10^3/uL (0.1-1.4) 05/09/16 04:19 Absolute Eosinophils 0.5 10^3/uL (0.0-0.6) 05/09/16 04:19 Absolute Basophils 0.1 10^3/uL (0.0-0.2) 05/09/16 04:19 Sodium 139.2 mmol/L (137-145) 05/09/16 04:19 Potassium 4.7 mmol/L (3.6-5.0) 05/09/16 04:19 Chloride 101 mmol/L (98-107) 05/09/16 04:19 Carbon Dioxide 25 mmol/L (22-30) 05/09/16 04:19 Anion Gap 13 (5-19) 05/09/16 04:19 BUN 33 mg/dL (7-20) H 05/09/16 04:19 Creatinine 1.02 mg/dL (0.52-1.25) 05/10/16 05:56 Est GFR ( Amer) > 60 (>60) 05/10/16 05:56 Est GFR (Non-Af Amer) > 60 (>60) 05/10/16 05:56 Glucose 188 mg/dL (75-110) H 05/09/16 04:19 POC Glucose 159 mg/dL (70-110) H 05/11/16 06:02 Calcium 9.5 mg/dL (8.4-10.2) 05/09/16 04:19 Total Bilirubin 0.4 mg/dL (0.2-1.3) 05/07/16 21:30 Direct Bilirubin 0.0 mg/dL (0.0-0.3) 05/07/16 21:30 AST 28 U/L (17-59) 05/07/16 21:30 ALT 41 U/L (21-72) 05/07/16 21:30 Alkaline Phosphatase 44 U/L (38-126) 05/07/16 21:30 C-Reactive Protein 11.2 mg/L (<10.0) H 05/09/16 04:19 Total Protein 6.6 g/dL (6.3-8.2) 05/07/16 21:30 Albumin 4.1 g/dL (3.5-5.0) 05/07/16 21:30 Impressions: Venous Doppler Study 05/08/16 00:00 IMPRESSION: NO EVIDENCE DVT OR SVT IN THE RIGHT LEG. Plan Discharge Plan: Patient was discharged on Augmentin and bacid for 10 days Time Spent: Less than 30 Minutes
== END 2016-05-11 10:21 | disposition home or self-care (01) | DRG 603 ==
LOC: ER 17:40 → UNDOADMIN 05-08 03:19 → EH 05-08 03:19 → 3N 05-08 06:10 → EH 05-08 08:32
PROVIDERS: ADMIT Family Medicine; ATTEND Family Medicine
DX: L03.115 Cellulitis of right lower limb (principal); Z68.41 Body mass index [BMI] 40.0-44.9, adult; E11.9 Type 2 diabetes mellitus without complications; E66.01 Morbid (severe) obesity due to excess calories; Z79.4 Long term (current) use of insulin; Z79.82 Long term (current) use of aspirin; I87.2 Venous insufficiency (chronic) (peripheral); E78.5 Hyperlipidemia, unspecified; Z88.2 Allergy status to sulfonamides; Z88.6 Allergy status to analgesic agent; Z88.3 Allergy status to other anti-infective agents
CPT/HCPCS: 36415; 80048; 80053; 80202; 82565; 82962; 85025; 86140; 93971; 96365; 96375; 99284; J0295; J1650; J2543; J3370; J7060

== ENCOUNTER 2016-08-02 15:55 | Emergency (ER) | payer MEDICARE, BC ==
[2016-08-02] MEDS ORDERED: IBUPROFEN 600 MG TABLET PO ONE (16:45)
[2016-08-02] MEDS ORDERED: HYDROCODONE/ACETAMINOPHEN 5-325 MG TABLET PO ONE (16:45)
--- NOTE | 2016-08-02 16:49 | ER Document Report ---
ED Medical Screen (RME) - General Chief Complaint: Calf pain Stated Complaint: POSSIBLE BLOOD CLOT Notes: The patient is a 71-year-old male, past medical history hypertension, frequent leg cellulitis, presents with 2 days of right calf pain and 1 day of worsening redness over his right zhu. He saw his primary care physician and was scheduled for an outpatient ultrasound this week, but the pain increased so he presented to the emergency room. He denies numbness, tingling, fevers, injury, difficulty walking, chest pain or shortness of breath. I have greeted and performed a rapid initial assessment of this patient. A comprehensive ED assessment and evaluation of the patient, analysis of test results and completion of the medical decision making process will be conducted by additional ED providers. TRAVEL OUTSIDE OF THE [place] IN LAST 30 DAYS: No - Related Data Allergies/Adverse Reactions: sulfamethoxazole [From Septra DS] Allergy (Mild, Verified 05/07/16 22:50) Pruritis trimethoprim [From Septra DS] Allergy (Mild, Verified 05/07/16 22:50) Pruritis codeine [Codeine] Allergy (Unknown, Verified 05/07/16 22:50) swelling Past Medical History - Past Medical History Cardiac Medical History: Reports: Hx Hypercholesterolemia, Hx Hypertension Endocrine Medical History: Reports: Hx Diabetes Mellitus Type 2 Renal/ Medical History: Denies: Hx Peritoneal Dialysis Past Surgical History: Reports: Hx Orthopedic Surgery - left knee, bilateral rotator cuff - Immunizations Hx Diphtheria, Pertussis, Tetanus Vaccination: Yes Physical Exam - Vital signs Vitals: Temp Pulse Resp BP Pulse Ox 99.1 F 97 21 H 161/60 H 97 08/02/16 16:04 08/02/16 16:04 08/02/16 16:04 08/02/16 16:04 08/02/16 16:04 Course - Vital Signs Vital signs: Temp Pulse Resp BP Pulse Ox 99.1 F 97 21 H 161/60 H 97 08/02/16 16:04 08/02/16 16:04 08/02/16 16:04 08/02/16 16:04 08/02/16 16:04
[2016-08-02 17:33] LABS: ABSOLUTE BASOPHILS # (AUTO) 0.1 10^3/uL (0.0-0.2); ABSOLUTE EOSINOPHILS # (AUTO) 0.5 10^3/uL (0.0-0.6); ABSOLUTE LYMPHOCYTES (AUTO) 2.9 10^3/uL (0.5-4.7); ABSOLUTE MONOCYTES (AUTO) 1.6 10^3/uL (0.1-1.4); ABSOLUTE NEUT (AUTO) 6.6 10^3/uL (1.7-8.2); BASOPHILS % (AUTO) 0.4 % (0-2); EOSINOPHILS % (AUTO) 4.3 % (0-6); HEMATOCRIT 42.8 % (37.9-51.0); HEMOGLOBIN 14.2 g/dL (13.5-17.0); HGB HCT DIFFERENCE -0.2; LYMPHOCYTES % (AUTO) 24.9 % (13-45); MEAN CORPUSCULAR HGB CONC 33.2 g/dL (32.0-36.0); MEAN CORPUSCULAR VOLUME 87 fl (80-97); MONOCYTES % (AUTO) 13.7 % (3-13); RED CELL DISTRIBUTION WIDTH 14.1 % (11.5-14.0); SEGMENTED NEUTROPHILS % (AUTO) 56.7 % (42-78); WHITE BLOOD COUNT 11.7 10^3/uL (4.0-10.5)
[2016-08-02 17:49] LABS: ALANINE AMINOTRANSFERASE 59 U/L (21-72); ALBUMIN 4.6 g/dL (3.5-5.0); ALKALINE PHOSPHATASE 46 U/L (38-126); ANION GAP 15 (5-19); ASPARTATE AMINO TRANSFERASE 41 U/L (17-59); BILIRUBIN,DIRECT 0.4 mg/dL (0.0-0.4); BILIRUBIN,TOTAL 0.6 mg/dL (0.2-1.3); BLOOD UREA NITROGEN 29 mg/dL (7-20); CALCIUM 9.8 mg/dL (8.4-10.2); CARBON DIOXIDE 25 mmol/L (22-30); CHLORIDE 105 mmol/L (98-107); CREATININE RESULT 1.42 mg/dL (0.52-1.25); GLUCOSE 88 mg/dL (75-110); POTASSIUM 4.6 mmol/L (3.6-5.0); SODIUM 144.5 mmol/L (137-145); TOTAL PROTEIN 7.6 g/dL (6.3-8.2)
[2016-08-02] MEDS ORDERED: VANCOMYCIN HCL INJ 1000 MG VIAL IV ONE (18:41)
[2016-08-02] MEDS ORDERED: AMPICILLIN SOD/SULBACTAM 3 GM VIAL IV ONE (18:41)
--- NOTE | 2016-08-02 19:22 | ER Document Report ---
ED Extremity Problem, Lower - General Time seen by provider: 18:55 Mode of Arrival: Ambulatory Information source: Patient, Relative - spouse TRAVEL OUTSIDE OF THE [place] IN LAST 30 DAYS: No - HPI Patient complains to provider of: Pain, Swelling Location: Ankle, Foot, Leg Occurred: Other - see HPI note Quality of pain: Burning <JACQUELINE BORGES - Last Filed: 08/02/16 19:50> <KAI AUGUSTIN - Last Filed: 08/02/16 22:19> - General Chief Complaint: Leg Swelling Stated Complaint: POSSIBLE BLOOD CLOT Notes: Patient is a 71 year old male presenting to the emergency department for edema, pain, and reddness to his right lower extremity. Patient has had these symptoms before with his history of cellulitis; patient denies having any pain in the past with his cellulitis. Patient states his pain has eased off while being in the emergency department. Patient states that he has been admitted in the past for cellulitis because he has need IV antibiotics. Patient has not had any antibiotics for this particular episode. Patient states that he saw his PCP yesterday for this however his foot had less swelling and redness than today's presentation. Patient has been wearing compression hose but did not wear any today or yesterday. Patient states he has increased swelling to the top of his right calf. Patient denies any trauma or injury. According to the patient's record at [facility], the patient was sent home with Augmentin in the past for this. Patient is allergic to sulfa drugs and Tylenol with Codeine. (JACQUELINE BORGES) - Related Data Allergies/Adverse Reactions: sulfamethoxazole [From Septra DS] Allergy (Mild, Verified 08/02/16 17:07) Pruritis trimethoprim [From Septra DS] Allergy (Mild, Verified 08/02/16 17:07) Pruritis codeine [Codeine] Allergy (Unknown, Verified 08/02/16 17:07) swelling Home Medications: Current Home Medications Insulin Aspart [Novolog Insulin (Aspart) 100 unit/mL] 0 units PUMP DAILY [History] Lisinopril [Prinivil] 20 mg PO DAILY 08/02/16 [History] Metformin HCl [Metformin HCl ER] 1,000 mg PO BID 08/02/16 [History] Tamsulosin HCl [Flomax 0.4 mg Cap.sr] 0.4 mg PO QAM 08/02/16 [History] Venlafaxine HCl [Effexor Xr] 150 mg PO DAILY 08/02/16 [History] Past Medical History - General Information source: Patient, Relative - spouse - Social History Smoking Status: Never Smoker Cigarette use (# per day): No Chew tobacco use (# tins/day): No Frequency of alcohol use: None Drug Abuse: None Family History: None Patient has suicidal ideation: No Patient has homicidal ideation: No - Past Medical History Cardiac Medical History: Reports: Hx Hypercholesterolemia, Hx Hypertension Endocrine Medical History: Reports: Hx Diabetes Mellitus Type 2 Past Surgical History: Reports: Hx Orthopedic Surgery - left knee, bilateral rotator cuff - Immunizations Hx Diphtheria, Pertussis, Tetanus Vaccination: Yes Hx Pneumococcal Vaccination: 06/25/12 <JACQUELINE BORGES - Last Filed: 08/02/16 19:50> Review of Systems - Review of Systems Constitutional: No symptoms reported EENT: No symptoms reported Cardiovascular: No symptoms reported Respiratory: No symptoms reported Gastrointestinal: No symptoms reported Genitourinary: No symptoms reported Male Genitourinary: No symptoms reported Musculoskeletal: See HPI Skin: See HPI Hematologic/Lymphatic: No symptoms reported Neurological/Psychological: No symptoms reported -: Yes All other systems reviewed and negative <JACQUELINE BORGES - Last Filed: 08/02/16 19:50> Physical Exam <JACQUELINE BORGES - Last Filed: 08/02/16 19:50> - Vital signs Interpretation: Normal - General General appearance: Appears well, Alert - HEENT Head: Normocephalic, Atraumatic Eyes: Normal Pupils: PERRL - Respiratory Respiratory status: No respiratory distress Chest status: Nontender Breath sounds: Normal Chest palpation: Normal - Cardiovascular Rhythm: Regular Heart sounds: Normal auscultation Murmur: No - Abdominal Inspection: Normal Distension: No distension Bowel sounds: Normal Tenderness: Nontender Organomegaly: No organomegaly - Back Back: Normal, Nontender - Extremities General upper extremity: Normal inspection, Nontender, Normal color, Normal ROM , Normal temperature General lower extremity: Nontender, Tender, Normal ROM, Normal temperature, Normal weight bearing. No: Normal inspection, Normal color, Maricel's sign Hip: Normal Thigh: Normal Knee: Normal Calf: Nontender - Neurological Neuro grossly intact: Yes Cognition: Normal Orientation: AAOx4 [place] Coma Scale Eye Opening: Spontaneous [place] Coma Scale Verbal: Oriented [place] Coma Scale Motor: Obeys Commands [place] Coma Scale Total: 15 Speech: Normal Motor strength normal: LUE, RUE, LLE, RLE Sensory: Normal - Psychological Associated symptoms: Normal affect, Normal mood - Skin Skin Temperature: Warm Skin Moisture: Dry Skin Color: Normal <KAI AUGUSTIN - Last Filed: 08/02/16 22:19> - Vital signs Vitals: Temp Pulse Resp BP Pulse Ox 99.1 F 97 21 H 161/60 H 97 08/02/16 16:04 08/02/16 16:04 08/02/16 16:04 08/02/16 16:04 08/02/16 16:04 - Extremities Notes: Patient with erythema from his mid tibia down. Patient is not tender over his foot or ankle but he has some tenderness to palpation over his calcaneus. ( KAI AUGUSTIN) Course - Laboratory Result Diagrams: 08/02/16 17:05 08/02/16 17:05 - Consults Dr. Dasilva Time consulted: 19:25 <JACQUELINE BORGES - Last Filed: 08/02/16 19:50> - Laboratory Result Diagrams: 08/02/16 17:05 08/02/16 17:05 <KAI AUGUSTIN - Last Filed: 08/02/16 22:19> - Re-evaluation Re-evalutation: 08/02/16 22:18 Patient is a 71-year-old male who presents with right lower extremity erythema and swelling. No evidence for DVT on Doppler. Discussed with the hospitalist service. Old records reviewed. Vitals are stable. Blood work within normal limits. Patient is afebrile and does not have any constitutional symptoms at this time. It is felt that he is safe to go home on Augmentin which she was sent home with after his last admission. Patient is agreeable to the plan at this time. He'll be given Unasyn and vancomycin tonight. He will start Augmentin in the morning. Patient did have one episode of vomiting after vancomycin was started. Rate was slowed. Patient is not tolerating food. Again, not febrile. Vital stable. Patient is comfortable with this plan. Return immediately if any worsening or concerning symptoms. Stable for discharge. (KAI AUGUSTIN) - Vital Signs Vital signs: Temp Pulse Resp BP Pulse Ox 98.5 F 85 20 127/51 H 96 08/02/16 20:42 08/02/16 20:42 08/02/16 20:42 08/02/16 20:42 08/02/16 20:42 - Laboratory Laboratory results interpreted by me: 08/02/16 08/02/16 17:05 17:05 WBC 11.7 H RDW 14.1 H Monocytes % 13.7 H Absolute Monocytes 1.6 H BUN 29 H Creatinine 1.42 H Est GFR ( Amer) 59 L Est GFR (Non-Af Amer) 49 L - Consults Dr. Dasilva Reason for consultation: 08/02/16 19:[address] Dasilva; he recommends sending patient home with Augmentin. (JACQUELINE BORGES) Discharge <JACQUELINE BORGES - Last Filed: 08/02/16 19:50> <KAI AUGUSTIN - Last Filed: 08/02/16 22:19> - Discharge Clinical Impression: Cellulitis of right leg Condition: Stable Disposition: HOME, SELF-CARE Instructions: Cellulitis ([facility]) Additional Instructions: Please return immediately if you have any concerning or worsening symptoms. Prescriptions: Amox Tr/Potassium Clavulanate [Augmentin 875-125 Tablet] 1 tab PO BID #28 tablet Oxycodone HCl/Acetaminophen [Percocet 5-325 mg Tablet] 1 tab PO Q4H PRN #15 tablet PRN Reason: Referrals: MARTIN LOVE, NURSERY WORKER-C [Primary Care Provider] - Follow up tomorrow Scribe Attestation: 08/02/16 22:19 I personally performed the services described in the documentation, reviewed and edited the documentation which was dictated to the scribe in my presence, and it accurately records my words and actions. (KAI AUGUSTIN) Scribe Documentation - Scribe Written by Scribliliana:: Jacqueline Borges 08/02/16 19:47 acting as scribe for :: Montse <JACQUELINE BORGES - Last Filed: 08/02/16 19:50>
[2016-08-02] MEDS ORDERED: HYDROCODONE/ACETAMINOPHEN 5-325 MG 6 TAB/DSPK PO PRN (20:42)
[2016-08-03 07:45] VITALS: BP 114/45
== END 2016-08-02 23:42 | disposition home or self-care (01) ==
LOC: ER 15:55
DX: L03.115 Cellulitis of right lower limb (principal); M79.89 Other specified soft tissue disorders; R60.0 Localized edema; Z79.899 Other long term (current) drug therapy
CPT/HCPCS: 99284; 96365; 96366; 96367; 36415; 87040; 85025; 80053; 83880; 93971; J0295; A9270 ×3; J3370

== ENCOUNTER 2018-04-03 16:35 | Inpatient (IN) | payer MEDICARE, BC ==
[2018-04-03] MEDS ORDERED: NORMAL SALINE 1000 ML 1,000 ML IV ONE (18:01)
[2018-04-03] MEDS ORDERED: VANCOMYCIN HCL INJ 1000 MG VIAL IV ONE ×2 (18:01→22:15)
[2018-04-03] MEDS ORDERED: PIPERACILLIN/TAZOBACTAM 4.5 GM VIAL IV ONE ×2 (18:01→21:00)
--- NOTE | 2018-04-03 18:04 | ER Document Report ---
ED Medical Screen (RME) - General Chief Complaint: Leg Pain Stated Complaint: LEG PAIN Time Seen by Provider: 04/03/18 17:56 Notes: Patient is a 72-year-old male with insulin-dependent diabetes mellitus that presents to the emergency department for chief complaint of left leg redness and pain. Patient states that he started noticing this initially on Sunday, and the progressively got worse, the redness got much worse, and it extended past his knee, to the point where he decided come to the ED. He states he recently had a cellulitic infection on his right lower extremity, that was treated with doxycycline as an outpatient, but he has had worse infections in the past that required hospitalizations. ROS: Other than noted above, the 12 point review of systems was reviewed with the patient and were negative, all pertinent findings are included in the HPI. PHYSICAL EXAMINATION: Vital signs reviewed. GENERAL: Elderly male, in no acute distress HEAD: Atraumatic, normocephalic. EYES: Pupils equal round extraocular movements intact, conjunctiva are normal. ENT: Nares patent NECK: Normal range of motion CV: Heart regular rate and rhythm LUNGS: No respiratory distress Musculoskeletal: Normal range of motion, significant erythema, and tenderness with palpation to the left lower extremity, with lymphangitis extending up towards the groin. NEUROLOGICAL: Normal speech PSYCH: Normal mood, normal affect. MDM: Patient seen and examined for rapid initial assessment. Vital signs reviewed. A comprehensive ED assessment and evaluation of the patient, analysis of test results and completion of the medical decision making process will be conducted by additional ED providers. *Note is created using voice recognition software and may contain spelling, syntax or grammatical errors. TRAVEL OUTSIDE OF THE [place] IN LAST 30 DAYS: No - Related Data Allergies/Adverse Reactions: sulfamethoxazole [From Septra DS] Allergy (Mild, Verified 08/02/16 17:07) Pruritis trimethoprim [From Septra DS] Allergy (Mild, Verified 08/02/16 17:07) Pruritis codeine [Codeine] Allergy (Unknown, Verified 08/02/16 17:07) swelling Past Medical History - Social History Chew tobacco use (# tins/day): No Frequency of alcohol use: None Drug Abuse: None - Past Medical History Cardiac Medical History: Reports: Hx Hypercholesterolemia, Hx Hypertension Endocrine Medical History: Reports: Hx Diabetes Mellitus Type 2 Renal/ Medical History: Denies: Hx Peritoneal Dialysis Past Surgical History: Reports: Hx Orthopedic Surgery - left knee, bilateral rotator cuff - Immunizations Hx Diphtheria, Pertussis, Tetanus Vaccination: Yes Physical Exam - Vital signs Vitals: Temp Pulse Resp BP Pulse Ox 98.7 F 96 20 151/54 H 97 04/03/18 16:53 04/03/18 16:53 04/03/18 16:53 04/03/18 16:53 04/03/18 16:53 Course - Vital Signs Vital signs: Temp Pulse Resp BP Pulse Ox 98.7 F 96 20 151/54 H 97 04/03/18 16:53 04/03/18 16:53 04/03/18 16:53 04/03/18 16:53 04/03/18 16:53 Doctor's Discharge - Discharge Referrals: MARTIN LOVE FNP-C [Primary Care Provider] - Follow up as needed
[2018-04-03 20:16] LABS: ABSOLUTE BASOPHILS # (AUTO) 0.1 10^3/uL (0.0-0.2); ABSOLUTE EOSINOPHILS # (AUTO) 0.4 10^3/uL (0.0-0.6); ABSOLUTE LYMPHOCYTES (AUTO) 3.2 10^3/uL (0.5-4.7); ABSOLUTE MONOCYTES (AUTO) 1.5 10^3/uL (0.1-1.4); ABSOLUTE NEUT (AUTO) 6.7 10^3/uL (1.7-8.2); BASOPHILS % (AUTO) 0.5 % (0-2); EOSINOPHILS % (AUTO) 3.1 % (0-6); HEMATOCRIT 39.3 % (37.9-51.0); HEMOGLOBIN 13.5 g/dL (13.5-17.0); LYMPHOCYTES % (AUTO) 27.3 % (13-45); MEAN CORPUSCULAR HEMOGLOBIN 29.3 pg (27.0-33.4); MEAN CORPUSCULAR HGB CONC 34.4 g/dL (32.0-36.0); MEAN CORPUSCULAR VOLUME 85 fl (80-97); PLATELET COUNT 231 10^3/uL (150-450); RED BLOOD COUNT 4.61 10^6/uL (4.35-5.55); RED CELL DISTRIBUTION WIDTH 13.9 % (11.5-14.0); SEGMENTED NEUTROPHILS % (AUTO) 56.1 % (42-78); TOTAL CELLS COUNTED % (AUTO) 100 %; WHITE BLOOD COUNT 11.9 10^3/uL (4.0-10.5)
[2018-04-03 20:39] LABS: ALANINE AMINOTRANSFERASE 30 U/L (21-72); ALBUMIN 4.2 g/dL (3.5-5.0); ALKALINE PHOSPHATASE 45 U/L (38-126); ANION GAP 11 (5-19); ASPARTATE AMINO TRANSFERASE 44 U/L (17-59); BILIRUBIN,DIRECT 0.5 mg/dL (0.0-0.4); BILIRUBIN,TOTAL 0.9 mg/dL (0.2-1.3); BLOOD UREA NITROGEN 20 mg/dL (7-20); CALCIUM 9.6 mg/dL (8.4-10.2); CARBON DIOXIDE 28 mmol/L (22-30); CHLORIDE 100 mmol/L (98-107); GLUCOSE 116 mg/dL (75-110); POTASSIUM 4.2 mmol/L (3.6-5.0); SODIUM 139.2 mmol/L (137-145); TOTAL PROTEIN 7.7 g/dL (6.3-8.2)
[2018-04-03] MEDS ORDERED: PIPERACILLIN/TAZOBACTAM 3.375 GM VIAL IV ONE (21:00)
--- NOTE | 2018-04-03 21:06 | EKG REPORT ---
SEVERITY:- ABNORMAL ECG - SINUS RHYTHM INCOMPLETE RIGHT BUNDLE BRANCH BLOCK : Confirmed by: Annalee Mcduffie MD 03-Apr-2018 21:05:42
[2018-04-03 22:14] LABS: INTERNATIONAL RATION (INR) 0.94
[2018-04-03 23:02] LABS: VENOUS BLOOD BASE EXCESS -0.7 mmol/L; VENOUS BLOOD HCO3 25.4 mmol/L (20-32); VENOUS BLOOD PCO2 47.8 mmHg (35-63); VENOUS BLOOD PH 7.34 (7.30-7.42)
[2018-04-03] MEDS ORDERED: ONDANSETRON HCL INJ/PF 4 MG/2 ML SDV IV ONE (23:02)
--- NOTE | 2018-04-03 23:03 | ER Document Report ---
ED General - General Chief Complaint: Leg Pain Stated Complaint: LEG PAIN Time Seen by Provider: 04/03/18 17:56 Notes: Very pleasant 72-year-old male with history of IDDM on an insulin pump presents to the emergency department for left lower extremity pain and redness. He said the redness initially started on Sunday that was warm to the touch and started at his ankle. It has progressed and became painful, described as an aching pain over his zhu rated at 5 out of 5, does not radiate, and is now at the level above his knee. He has a history of cellulitis infection on his right lower extremity in the past that required IV antibiotics and admission.. While in the room the patient did vomit and was complaining of nausea. He denies lightheadedness, dizziness, shortness of breath, chest pain. He says that he does have a systemic rash and got a recent biopsy from the [employer] resource [employer]. Results are still pending. TRAVEL OUTSIDE OF THE [place] IN LAST 30 DAYS: No - Related Data Allergies/Adverse Reactions: sulfamethoxazole [From Septra DS] Allergy (Mild, Verified 08/02/16 17:07) Pruritis trimethoprim [From Septra DS] Allergy (Mild, Verified 08/02/16 17:07) Pruritis codeine [Codeine] Allergy (Unknown, Verified 08/02/16 17:07) swelling Past Medical History - General Information source: Patient - Social History Smoking Status: Never Smoker Chew tobacco use (# tins/day): No Frequency of alcohol use: None Drug Abuse: None Family History: None Patient has suicidal ideation: No Patient has homicidal ideation: No - Past Medical History Cardiac Medical History: Reports: Hx Hypercholesterolemia, Hx Hypertension Endocrine Medical History: Reports: Hx Diabetes Mellitus Type 2 Renal/ Medical History: Denies: Hx Peritoneal Dialysis Past Surgical History: Reports: Hx Orthopedic Surgery - left knee, bilateral rotator cuff - Immunizations Hx Diphtheria, Pertussis, Tetanus Vaccination: Yes Hx Pneumococcal Vaccination: 06/25/12 Review of Systems - Review of Systems Constitutional: See HPI EENT: See HPI Cardiovascular: See HPI Respiratory: See HPI Gastrointestinal: See HPI Genitourinary: No symptoms reported Male Genitourinary: No symptoms reported Musculoskeletal: No symptoms reported Skin: No symptoms reported Hematologic/Lymphatic: See HPI Neurological/Psychological: No symptoms reported Physical Exam - Vital signs Vitals: Temp Pulse Resp BP Pulse Ox 98.7 F 96 20 151/54 H 97 04/03/18 16:53 04/03/18 16:53 04/03/18 16:53 04/03/18 16:53 04/03/18 16:53 - Notes Notes: Reviewed vital signs and nursing note as charted by RN. CONSTITUTIONAL: Well-appearing, well-nourished, acting appropriately for age HEAD: Normocephalic, atraumatic, no swelling EYES: PERRL, Conjunctivae clear, no drainage, EOMI, no scleral icterus ENT: External ears without lesions, External auditory canal is patent, airway patent, mucous membranes pink and moist NECK: Supple, no cervical lymphadenopathy, no masses CARD: Regular rate and rhythm, no murmurs, no rubs, no gallops, capillary refill < 2 seconds, symmetric pulses RESP: The lungs are clear to auscultation bilaterally, no wheezing, no rales, no rhonchi. Respiratory rate and effort are normal, normal chest excursion. No respiratory distress, no retractions, no stridor, no nasal flaring, no accessory muscle use. ABD/GI: Normal bowel sounds, distended, soft, non-tender, no rebound, no guarding, no palpable organomegaly EXT: Normal ROM in all joints, non-tender to palpation, no effusions, no edema SKIN: Left lower extremity red from foot up to the level of above the knee, tenderness to palpation over the area, no rash or bullae. NEURO: moves all extremities equally, motor and sensory function intact Course - Re-evaluation Re-evalutation: 04/03/18 23:44 Patient is a very pleasant 72-year-old male with left lower extremity redness, pain. Blood cultures were drawn and IV antibiotics initiated. He received 1 dose of Zosyn 3.375 and vancomycin 2 g. In the room patient became nauseated and vomited one time. Zofran was given his symptoms have resolved. Because patient is a diabetic and has a history of sepsis secondary to cellulitis and frequent cellulitis is appropriate to admit this patient for IV antibiotics. I spoke with Dr. Zarate and he has agreed to accept the patient. 04/04/18 01:17 04/04/18 05:48 - Vital Signs Vital signs: Temp Pulse Resp BP Pulse Ox 98.6 F 88 17 137/77 H 98 04/04/18 03:36 04/04/18 03:36 04/04/18 03:36 04/04/18 03:36 04/04/18 03:36 - Laboratory Result Diagrams: 04/03/18 19:45 04/03/18 19:45 Laboratory results interpreted by me: 04/03/18 04/03/18 04/03/18 19:45 19:45 22:02 WBC 11.9 H Absolute Monocytes 1.5 H Glucose 116 H POC Glucose 56 L Direct Bilirubin 0.5 H Discharge - Discharge Clinical Impression: Cellulitis of left leg Cellulitis Qualifiers: Site of cellulitis: extremity Site of cellulitis of extremity: lower extremity Laterality: left Qualified Code(s): L03.116 - Cellulitis of left lower limb Condition: Stable Disposition: ADMITTED INPATIENT Admitting Provider: Hospitalist Unit Admitted: Medical Floor
[2018-04-04] MEDS ORDERED: MAG HYDROX/AL HYDROX/SIMETH SUSP 30 ML UDCUP PO PRN (00:49)
[2018-04-04] MEDS ORDERED: ONDANSETRON 4 MG TAB.RAPDIS PO PRN (00:49)
[2018-04-04] MEDS ORDERED: ONDANSETRON HCL INJ/PF 4 MG/2 ML SDV IV PRN (00:49)
[2018-04-04] MEDS ORDERED: MAGNESIUM HYDROXIDE SUSP 30 ML UDCUP PO PRN (00:49)
[2018-04-04] MEDS ORDERED: MORPHINE SULFATE 10 MG/ML INJ IV PRN ×3 (00:56)
[2018-04-04] MEDS ORDERED: PIPERACILLIN SODIUM/TAZOBACTAM 3.375 GM in NORMAL SALINE 50 ML IV ONE (01:15)
[2018-04-04] MEDS ORDERED: PIPERACILLIN/TAZOBACTAM 3.375 GM VIAL IV PRN (01:16)
[2018-04-04] MEDS ORDERED: PIPERACILLIN SODIUM/TAZOBACTAM 3.375 GM in NORMAL SALINE 50 ML IV SCH (03:00)
--- NOTE | 2018-04-04 04:46 | PDOC H&P ---
History of Present Illness Admission Date/PCP: RONNY KOLB Patient complains of: Painful swollen left lower extremity History of Present Illness: ROWAN ISLAS is a 72 year old male who presented to the emergency room with a 2 -day history of gradually increasing redness with swelling, pain and increased warmth in his left lower extremity. He states that his left lower leg begin to be significantly red and inflamed starting on Sunday of this week. The redness and swelling with increased warmth and pain continued to increase and spread up from the ankle area through the anterior tibial surface and calf up to the knee and above the knee on the medial aspect of the thigh stretching almost up to his groin. He did have nausea but had not vomited until after he arrived at the emergency room. He further denied fever, chills, dyspnea, cough, joint pain or swelling. He does have a chronic rash involving his lower extremities which appears to be of an eczematoid nature. He has not identified any aggravating or ameliorating factors for his redness and swelling but does admit to having prior similar episodes on several occasions the most recent of which involved his right lower extremity a couple of weeks ago. On that occasion he was treated with oral doxycycline and had a good response. In the emergency room his workup was essentially unremarkable but because of his rapidly spreading erythema it was felt that intravenous antibiotic therapy was appropriate for the first 24-72 hours based on response to therapy. He was therefore admitted to the hospital for further antibiotic therapy and continued observation of his infectious process. Past Medical History Cardiac Medical History: Reports: Hyperlipidema, Hypertension Pulmonary Medical History: Denies: Asthma, Chronic Obstructive Pulmonary Disease (COPD) EENT Medical History: Reports: None Neurological Medical History: Denies: Hemorrhagic CVA, Ischemic CVA, Seizures Endocrine Medical History: Reports: Diabetes Mellitus Type 2, Obesity Denies: Diabetes Mellitus Type 1, Hyperthyroidism Renal/ Medical History: Denies: Chronic Kidney Disease, Nephrolithiasis Malignancy Medical History: Reports: None GI Medical History: Denies: Cirrhosis, Hepatitis Musculoskeltal Medical History: Denies: Arthritis, Gout Skin Medical History: Reports: Eczema Denies: Psoriasis Psychiatric Medical History: Denies: Alcohol Dependency, Substance Abuse, Tobacco Dependency Traumatic Medical History: Reports: None Hematology: Denies: Anemia, Bleeding Tendencies Infectious Medical History: Reports: None Past Surgical History Past Surgical History: Reports: Orthopedic Surgery - left knee, bilateral rotator cuff Social History Information Source: Patient Lives with: Spouse/Significant other Smoking Status: Never Smoker Frequency of Alcohol Use: None Hx Recreational Drug Use: No Drugs: None Hx Prescription Drug Abuse: No - Advance Directive Resuscitation Status: Full Code Surrogate healthcare decision maker:: Spouse Family History Family History: DM Parental Family History Reviewed: Yes Children Family History Reviewed: No Sibling(s) Family History Reviewed.: Yes Medication/Allergy Home Medications: Amox Tr/Potassium Clavulanate [Augmentin 875-125 Tablet] 1 tab PO BID #28 tablet 08/02/16 Insulin Aspart [Novolog Insulin (Aspart) 100 unit/mL] 0 units PUMP DAILY Lisinopril [Prinivil] 20 mg PO DAILY 08/02/16 Metformin HCl [Metformin HCl ER] 1,000 mg PO BID 08/02/16 Oxycodone HCl/Acetaminophen [Percocet 5-325 mg Tablet] 1 tab PO Q4H PRN #15 tablet 08/02/16 Tamsulosin HCl [Flomax 0.4 mg Cap.sr] 0.4 mg PO QAM 08/02/16 Venlafaxine HCl [Effexor Xr] 150 mg PO DAILY 08/02/16 Allergies/Adverse Reactions: sulfamethoxazole [From Septra DS] Allergy (Mild, Verified 08/02/16 17:07) Pruritis trimethoprim [From Septra DS] Allergy (Mild, Verified 08/02/16 17:07) Pruritis codeine [Codeine] Allergy (Unknown, Verified 08/02/16 17:07) swelling Review of Systems Constitutional: ABSENT: chills, fever(s) Eyes: ABSENT: visual disturbances, other - Ocular pain Ears: ABSENT: hearing changes, other - Ear pain Nose, Mouth, and Throat: ABSENT: mouth pain, sore throat Cardiovascular: ABSENT: chest pain, dyspnea on exertion, palpitations Respiratory: ABSENT: cough, dyspnea Gastrointestinal: PRESENT: nausea, vomiting. ABSENT: abdominal pain, constipation, diarrhea Genitourinary: ABSENT: dysuria, hematuria Musculoskeletal: ABSENT: deformity, joint swelling Integumentary: PRESENT: as per HPI, erythema - With edema increased warmth and pain., pruritus - Chronic rash occasionally has itching associated, rash - Chronic involving both lower extremities (appears to be eczematoid). Neurological: ABSENT: confusion, convulsions, dizziness, focal weakness, lack of coordination, memory loss, syncope, vertigo Psychiatric: ABSENT: anxiety, depression Endocrine: ABSENT: cold intolerance, heat intolerance Hematologic/Lymphatic: ABSENT: easy bleeding, easy bruising Physical Exam Vital Signs: Temp Pulse Resp BP Pulse Ox 98.7 F 96 20 151/54 H 97 04/03/18 16:53 04/03/18 16:53 04/03/18 16:53 04/03/18 16:53 04/03/18 16:53 Intake & Output 04/02/18 04/03/18 04/04/18 23:59 23:59 23:59 Intake Total 1000 Balance 1000 Weight 112.4 kg General appearance: PRESENT: no acute distress, cooperative, obese Head exam: PRESENT: atraumatic, normocephalic Eye exam: PRESENT: conjunctiva pink, EOMI. ABSENT: nystagmus, scleral icterus Ear exam: PRESENT: normal external ear exam. ABSENT: bleeding Mouth exam: PRESENT: neck supple, other - Oral mucosa is moist and intact, dentition is in good repair Neck exam: ABSENT: JVD, thyromegaly, tracheal deviation Respiratory exam: PRESENT: clear to auscultation prabhakar, symmetrical, unlabored Cardiovascular exam: PRESENT: RRR. ABSENT: clicks, gallop, rubs Pulses: PRESENT: normal radial pulses, normal dorsalis pedis pul Vascular exam: PRESENT: normal capillary refill. ABSENT: pallor GI/Abdominal exam: PRESENT: normal bowel sounds, soft. ABSENT: tenderness Rectal exam: PRESENT: deferred Extremities exam: PRESENT: full ROM, tenderness - Left lower extremity from the foot to the knee. ABSENT: joint swelling Musculoskeletal exam: ABSENT: deformity, dislocation Neurological exam: PRESENT: alert, oriented to person, oriented to place, oriented to time, oriented to situation, CN II-XII grossly intact. ABSENT: motor sensory deficit Psychiatric exam: PRESENT: appropriate affect, normal mood Skin exam: PRESENT: dry, intact, rash - Erythema and edema with increased warmth and pain on palpation involving the left lower extremity from the foot and ankle to the knee., warm. ABSENT: jaundice, urticaria Results Laboratory Results: 04/03/18 19:45 04/03/18 19:45 04/03/18 04/03/18 04/03/18 19:45 19:45 21:31 WBC 11.9 H RBC 4.61 Hgb 13.5 Hct 39.3 MCV 85 MCH 29.3 MCHC 34.4 RDW 13.9 Plt Count 231 Seg Neutrophils % 56.1 Lymphocytes % 27.3 Monocytes % 13.0 Eosinophils % 3.1 Basophils % 0.5 Absolute Neutrophils 6.7 Absolute Lymphocytes 3.2 Absolute Monocytes 1.5 H Absolute Eosinophils 0.4 Absolute Basophils 0.1 VBG pH VBG pCO2 VBG HCO3 VBG Base Excess Sodium 139.2 Potassium 4.2 Chloride 100 Carbon Dioxide 28 Anion Gap 11 BUN 20 Creatinine 1.10 Est GFR ( Amer) > 60 Est GFR (Non-Af Amer) > 60 Glucose 116 H Lactic Acid 1.4 Calcium 9.6 Total Bilirubin 0.9 AST 44 ALT 30 Alkaline Phosphatase 45 Total Protein 7.7 Albumin 4.2 04/03/18 22:40 WBC RBC Hgb Hct MCV MCH MCHC RDW Plt Count Seg Neutrophils % Lymphocytes % Monocytes % Eosinophils % Basophils % Absolute Neutrophils Absolute Lymphocytes Absolute Monocytes Absolute Eosinophils Absolute Basophils VBG pH 7.34 VBG pCO2 47.8 VBG HCO3 25.4 VBG Base Excess -0.7 Sodium Potassium Chloride Carbon Dioxide Anion Gap BUN Creatinine Est GFR ( Amer) Est GFR (Non-Af Amer) Glucose Lactic Acid Calcium Total Bilirubin AST ALT Alkaline Phosphatase Total Protein Albumin Assessment & Plan - Diagnosis (1) Cellulitis of left leg Is this a current diagnosis for this admission?: Yes Plan: Patient is admitted for IV antibiotic therapy utilizing vancomycin and Zosyn. He has pain will be treated with intravenous morphine sulfate on a sliding scale basis. Daily CBCs and metabolic profiles will be used to help evaluate therapy. (2) Hypertension Qualifiers: Hypertension type: essential hypertension Qualified Code(s): I10 - Essential (primary) hypertension Is this a current diagnosis for this admission?: Yes Plan: Patient will be continued on his current antihypertensive regimen. He will be observed for efficacy of therapy throughout his hospital course. (3) Dyslipidemia Is this a current diagnosis for this admission?: Yes Plan: Patient will be continued on his current statin therapy. Lipid profile will be obtained to evaluate efficacy of therapy. (4) Diabetes mellitus type 2 in obese Is this a current diagnosis for this admission?: Yes Plan: Patient will be continued on his current diabetic therapy. Hemoglobin A1c will be obtained to evaluate efficacy of therapy. - Time Time Spent: 30 to 50 Minutes Critical Time spent with patient: Less than 15 minutes Medications reviewed and adjusted accordingly: Yes Anticipated discharge: Home - Inpatient Certification Based on my medical assessment, after consideration of the patient's comorbidities, presenting symptoms, or acuity I expect that the services needed warrant INPATIENT care.: Yes I certify that my determination is in accordance with my understanding of Medicare's requirements for reasonable and necessary INPATIENT services [42 CFR 412.3e].: Yes Medical Necessity: Significant Comorbidiites Make Outpatient Treatment Too Risky , Need Close Monitoring Due to Risk of Patient Decompensation, Need for Pain Control, Need for IV Antibiotics
[2018-04-04] MEDS: HEPARIN SOD (PORCINE) 5,000 UNIT/ML 1 ML SYRINGE SUBCUT SCH ×3 (05:49→21:19)
[2018-04-04] MEDS ORDERED: PIPERACILLIN/TAZOBACTAM 3.375 GM VIAL IV SCH (06:00)
[2018-04-04] MEDS: TAMSULOSIN HCL 0.4 MG CAP.SR.24H PO SCH (08:26)
[2018-04-04] MEDS: PIPERACILLIN SODIUM/TAZOBACTAM 3.375 GM in NORMAL SALINE 100 ML IV SCH ×3 (09:28→23:50)
[2018-04-04] MEDS: FAMOTIDINE 20 MG TABLET PO SCH ×2 (09:29→21:21)
[2018-04-04] MEDS: METFORMIN HCL 500 MG TABLET PO SCH ×2 (09:29→17:37)
[2018-04-04] MEDS: DOCUSATE SODIUM 100 MG CAPSULE PO SCH ×2 (09:29→17:37)
[2018-04-04] MEDS ORDERED: INSULIN ASPART 100 UNIT PUMP SCH (10:00)
[2018-04-04] MEDS ORDERED: VENLAFAXINE HCL 75 MG CAP.SR.24H PO SCH (10:00)
[2018-04-04] MEDS ORDERED: LISINOPRIL 10 MG TABLET PO SCH (10:00)
[2018-04-04] MEDS ORDERED: VANCOMYCIN HCL INJ 1000 MG VIAL IV SCH (10:00)
[2018-04-04] MEDS: VANCOMYCIN HCL 1,000 MG in DEXTROSE 5%-WATER 250 ML IV SCH (10:45)
--- NOTE | 2018-04-04 15:26 | Progress Note ---
Provider Note Provider Note: This is a 72-year-old man who was admitted with left leg cellulitis. He was admitted after midnight. He feels that he is getting better. His redness on the left leg is improved. The pain is improved. No chest pain or difficulty breathing. He is eating and drinking well. No constipation diarrhea or dysuria. He is able to ambulate. On exam he is awake alert oriented no acute distress, neck is supple, mucous membranes moist, regular rate and rhythm without murmurs, lungs are clear to auscultation bilaterally. Abdomen is obese soft nontender nondistended with normal bowel sounds. He has chronic distal erythema present on the right distal leg. Left leg has the component of chronic erythema along with a more acute component radiating up the leg in a sock-like fashion and then with a linear erythema moving up past the knee internally onto the thigh. Assessment: Left leg cellulitis improving Plan: Continue Vanco and Zosyn for another day and reassess tomorrow. Follow CBC and BMP secondary to vancomycin, Zosyn and Lovenox usage. Consider downgraded to doxycycline if his cellulitis continues to improve tomorrow he recently took a course of doxycycline for right leg cellulitis that was very successfully treated.
[2018-04-05] MEDS ORDERED: DIPHENHYDRAMINE HCL 50 MG CAPSULE PO PRN (00:04)
[2018-04-05] MEDS: VANCOMYCIN HCL 1,000 MG in DEXTROSE 5%-WATER 250 ML IV SCH ×3 (01:23→17:37)
[2018-04-05 04:56] LABS: HEMATOCRIT 36.9 % (37.9-51.0); HEMOGLOBIN 12.6 g/dL (13.5-17.0); MEAN CORPUSCULAR HEMOGLOBIN 29.6 pg (27.0-33.4); MEAN CORPUSCULAR HGB CONC 34.1 g/dL (32.0-36.0); MEAN CORPUSCULAR VOLUME 87 fl (80-97); PLATELET COUNT 200 10^3/uL (150-450); RED BLOOD COUNT 4.25 10^6/uL (4.35-5.55); RED CELL DISTRIBUTION WIDTH 13.9 % (11.5-14.0); WHITE BLOOD COUNT 7.5 10^3/uL (4.0-10.5)
[2018-04-05] MEDS: PIPERACILLIN SODIUM/TAZOBACTAM 3.375 GM in NORMAL SALINE 100 ML IV SCH ×4 (05:02→21:43)
[2018-04-05 05:03] LABS: ANION GAP 12 (5-19); BLOOD UREA NITROGEN 22 mg/dL (7-20); CALCIUM 9.3 mg/dL (8.4-10.2); CARBON DIOXIDE 24 mmol/L (22-30); CHLORIDE 104 mmol/L (98-107); GLUCOSE 242 mg/dL (75-110); POTASSIUM 4.3 mmol/L (3.6-5.0); SODIUM 140.2 mmol/L (137-145)
[2018-04-05] MEDS: HEPARIN SOD (PORCINE) 5,000 UNIT/ML 1 ML SYRINGE SUBCUT SCH ×3 (05:04→21:43)
[2018-04-05 05:30] LABS: ABSOLUTE LYMPHOCYTES# (MANUAL) 2.3 10^3/uL (0.5-4.7); ABSOLUTE MONOCYTES # (MANUAL) 1.3 10^3/uL (0.1-1.4); ABSOLUTE NEUTROPHILS# (MANUAL) 3.6 10^3/uL (1.7-8.2); BAND NEUTROPHILS % (MANUAL) 1 % (3-5); BASOPHILS % (MANUAL) 0 % (0-2); EOSINOPHILS % (MANUAL) 4 % (0-6); LYMPHOCYTES % (MANUAL) 27 % (13-45); MONOCYTES % (MANUAL) 17 % (3-13); SEGMENTED NEUTROPHILS % (MAN) 47 % (42-78); TOTAL CELLS COUNTED 100
[2018-04-05 05:31] LABS: PLATELET COMMENT ADEQUATE; PLATELET LARGE PRESENT; RBC MORPHOLOGY COMMENT NORMO-CYTIC/CHROMIC
[2018-04-05] MEDS: VENLAFAXINE HCL 75 MG CAP.SR.24H PO SCH (08:57)
[2018-04-05] MEDS: TAMSULOSIN HCL 0.4 MG CAP.SR.24H PO SCH (08:58)
[2018-04-05] MEDS: LISINOPRIL 10 MG TABLET PO SCH (08:59)
[2018-04-05] MEDS: FAMOTIDINE 20 MG TABLET PO SCH ×2 (09:00→21:43)
[2018-04-05] MEDS: DOCUSATE SODIUM 100 MG CAPSULE PO SCH ×2 (09:00→17:36)
[2018-04-05] MEDS: METFORMIN HCL 500 MG TABLET PO SCH ×2 (09:20→17:36)
[2018-04-05] MEDS ORDERED: GLUCAGON,HUMAN RECOMB 1 MG INJ IM PRN (10:52)
[2018-04-05] MEDS ORDERED: DEXTROSE 50%-WATER 25 GM/50 ML DISP.SYRIN IV PRN ×2 (10:52)
[2018-04-05] MEDS ORDERED: DEXTROSE 40% GEL 15 GM TUBE PO PRN ×2 (10:52)
[2018-04-05] MEDS: HYDROXYZINE PAMOATE 50 MG CAPSULE PO PRN (11:25)
--- NOTE | 2018-04-05 17:39 | PDOC PROGRESS REPORT ---
Subjective Progress Note for:: 04/05/18 Subjective:: Patient feels a little bit tired today though he thinks his leg is getting better. No new pain, no chest pain or shortness of breath, no confusion, no fever or chills. Eating and drinking fine. No dysuria. Reason For Visit: LEFT LOWER EXTREMITY CELLULITIS Physical Exam Vital Signs: Temp Pulse Resp BP Pulse Ox 97.5 F 79 19 117/48 L 99 04/05/18 15:00 04/05/18 15:00 04/05/18 15:00 04/05/18 15:00 04/05/18 15:00 Intake & Output 04/04/18 04/05/18 04/06/18 06:59 06:59 06:59 Intake Total 50 2293 1240 Balance 50 2293 1240 Weight 89 kg 98.7 kg General appearance: PRESENT: no acute distress, cooperative, obese Head exam: PRESENT: atraumatic, normocephalic Eye exam: ABSENT: conjunctival injection, scleral icterus Ear exam: PRESENT: normal external ear exam Respiratory exam: PRESENT: clear to auscultation prabhakar, unlabored. ABSENT: rales , rhonchi, wheezes Cardiovascular exam: PRESENT: RRR. ABSENT: systolic murmur Pulses: PRESENT: normal radial pulses GI/Abdominal exam: PRESENT: normal bowel sounds, soft. ABSENT: distended, tenderness Rectal exam: PRESENT: deferred Extremities exam: ABSENT: pedal edema Musculoskeletal exam: PRESENT: ambulatory. ABSENT: deformity Neurological exam: PRESENT: alert, awake, oriented to person, oriented to place , oriented to situation, CN II-XII grossly intact Psychiatric exam: PRESENT: appropriate affect. ABSENT: anxious Skin exam: PRESENT: dry, intact, warm, other - Insulin pump in place over abdomen Results Laboratory Results: 04/05/18 03:48 04/05/18 03:48 04/05/18 04/05/18 03:48 03:48 WBC 7.5 RBC 4.25 L Hgb 12.6 L Hct 36.9 L MCV 87 MCH 29.6 MCHC 34.1 RDW 13.9 Plt Count 200 Seg Neutrophils % Not Reportable Lymphocytes % Not Reportable Monocytes % Not Reportable Eosinophils % Not Reportable Basophils % Not Reportable Absolute Neutrophils Not Reportable Absolute Lymphocytes Not Reportable Absolute Monocytes Not Reportable Absolute Eosinophils Not Reportable Absolute Basophils Not Reportable Sodium 140.2 Potassium 4.3 Chloride 104 Carbon Dioxide 24 Anion Gap 12 BUN 22 H Creatinine 1.05 Est GFR ( Amer) > 60 Est GFR (Non-Af Amer) > 60 Glucose 242 H Calcium 9.3 Magnesium 1.7 Assessment & Plan - Diagnosis (1) Bacteremia Is this a current diagnosis for this admission?: Yes Plan: gram neg bacteremia in one set of blood cultures, will cont with braod spectrum abx for this reason (2) Cellulitis of left leg Is this a current diagnosis for this admission?: Yes Plan: cont both gram positive and gram neg coverage given severity of cellulitis and pos blood culture. Erythema is improving on the left leg. (3) Diabetes mellitus type 2 in obese Is this a current diagnosis for this admission?: Yes Plan: pt has had elevated glucose levels that are now coming down, he has his insulin pump in place and is cont with his metformin (which he insists on taking). Will cont to watch closely and change insulin plan as indicated and as pt clark accept. He told me that he uses glargine as a sliding scale at home but I did not agree to do this. Agagin, will monitor closely and titrate insulin as needed. (4) Stasis dermatitis of both legs Is this a current diagnosis for this admission?: Yes Plan: stable on right leg, obvious on left leg but overshadowed by the cellulitis - Time Time Spent with patient: 25-34 minutes Anticipated discharge: Home - Inpatient Certification Based on my medical assessment, after consideration of the patient's comorbidities, presenting symptoms, or acuity I expect that the services needed warrant INPATIENT care.: Yes I certify that my determination is in accordance with my understanding of Medicare's requirements for reasonable and necessary INPATIENT services [42 CFR 412.3e].: Yes Medical Necessity: Need for IV Antibiotics
[2018-04-05] MEDS ORDERED: INSULIN GLARGINE,HUM.REC.ANLOG 300 UNIT/3 ML INSULN.PEN SUBCUT SCH (22:00)
[2018-04-06] MEDS: VANCOMYCIN HCL 1,000 MG in DEXTROSE 5%-WATER 250 ML IV SCH ×2 (03:07→10:38)
[2018-04-06] MEDS: PIPERACILLIN SODIUM/TAZOBACTAM 3.375 GM in NORMAL SALINE 100 ML IV SCH ×4 (05:09→20:44)
[2018-04-06] MEDS: HEPARIN SOD (PORCINE) 5,000 UNIT/ML 1 ML SYRINGE SUBCUT SCH ×3 (05:10→21:04)
[2018-04-06 05:35] LABS: HEMOGLOBIN 12.6 g/dL (13.5-17.0); MEAN CORPUSCULAR HEMOGLOBIN 29.8 pg (27.0-33.4); MEAN CORPUSCULAR HGB CONC 34.1 g/dL (32.0-36.0); MEAN CORPUSCULAR VOLUME 87 fl (80-97); PLATELET COUNT 263 10^3/uL (150-450); RED BLOOD COUNT 4.24 10^6/uL (4.35-5.55); RED CELL DISTRIBUTION WIDTH 13.9 % (11.5-14.0); WHITE BLOOD COUNT 8.9 10^3/uL (4.0-10.5)
[2018-04-06 05:51] LABS: ANION GAP 9 (5-19)
[2018-04-06 06:03] LABS: ABSOLUTE LYMPHOCYTES# (MANUAL) 3.1 10^3/uL (0.5-4.7); ABSOLUTE NEUTROPHILS# (MANUAL) 4.5 10^3/uL (1.7-8.2); BAND NEUTROPHILS % (MANUAL) 1 % (3-5); BASOPHILS % (MANUAL) 0 % (0-2); EOSINOPHILS % (MANUAL) 3 % (0-6); LYMPHOCYTES % (MANUAL) 33 % (13-45); METAMYELOCYTES % (MANUAL) 1 % (0); MONOCYTES % (MANUAL) 11 % (3-13); RBC MORPHOLOGY COMMENT NORMO-CYTIC/CHROMIC; SEGMENTED NEUTROPHILS % (MAN) 49 % (42-78); TOTAL CELLS COUNTED 100; TOXIC GRANULATION SLIGHT; TOXIC VACUOLATION PRESENT
[2018-04-06 06:04] LABS: PLATELET COMMENT ADEQUATE
[2018-04-06 06:13] LABS: BLOOD UREA NITROGEN 21 mg/dL (7-20); CALCIUM 9.4 mg/dL (8.4-10.2); CARBON DIOXIDE 27 mmol/L (22-30); CHLORIDE 105 mmol/L (98-107); GLUCOSE 60 mg/dL (75-110); POTASSIUM 4.2 mmol/L (3.6-5.0); SODIUM 140.5 mmol/L (137-145)
[2018-04-06] MEDS: LISINOPRIL 10 MG TABLET PO SCH (08:32)
[2018-04-06] MEDS: FAMOTIDINE 20 MG TABLET PO SCH ×2 (08:32→21:04)
[2018-04-06] MEDS: VENLAFAXINE HCL 75 MG CAP.SR.24H PO SCH (08:32)
[2018-04-06] MEDS: DOCUSATE SODIUM 100 MG CAPSULE PO SCH ×2 (08:32→17:56)
[2018-04-06] MEDS: TAMSULOSIN HCL 0.4 MG CAP.SR.24H PO SCH (08:32)
[2018-04-06] MEDS: METFORMIN HCL 500 MG TABLET PO SCH ×2 (10:37→16:19)
[2018-04-06] MEDS ORDERED: ACETAMINOPHEN 325 MG TABLET PO PRN (11:27)
--- NOTE | 2018-04-06 17:43 | PDOC PROGRESS REPORT ---
Subjective Progress Note for:: 04/06/18 Subjective:: Patient was having some left leg pain earlier, he use Tylenol and the pain is resolved. His CBGs are now better controlled. No chest pain or difficulty breathing. No fevers or chills. Leg swelling and erythema are improving. He is moving his bowels and has no dysuria. Reason For Visit: LEFT LOWER EXTREMITY CELLULITIS Physical Exam Vital Signs: Temp Pulse Resp BP Pulse Ox 98.4 F 81 16 124/58 L 100 04/06/18 15:54 04/06/18 15:54 04/06/18 15:54 04/06/18 15:54 04/06/18 15:54 Intake & Output 04/05/18 04/06/18 04/07/18 06:59 06:59 06:59 Intake Total 2293 2040 450 Balance 2293 2040 450 Weight 98.7 kg 96.2 kg General appearance: PRESENT: no acute distress, obese Head exam: ABSENT: atraumatic, normocephalic Eye exam: ABSENT: conjunctival injection, scleral icterus Ear exam: PRESENT: normal external ear exam Mouth exam: PRESENT: tongue midline Respiratory exam: PRESENT: clear to auscultation prabhakar, rales, rhonchi, wheezes. ABSENT: unlabored Cardiovascular exam: PRESENT: RRR. ABSENT: systolic murmur Pulses: PRESENT: normal radial pulses GI/Abdominal exam: PRESENT: normal bowel sounds, soft. ABSENT: distended, tenderness Rectal exam: PRESENT: deferred Extremities exam: PRESENT: pedal edema. ABSENT: joint swelling Neurological exam: PRESENT: alert, awake, oriented to person, oriented to place , oriented to situation, CN II-XII grossly intact Psychiatric exam: PRESENT: appropriate affect. ABSENT: anxious Skin exam: PRESENT: other - Patient has chronic bilateral venous stasis changes. Left leg has superimposed erythema which originally had sock-like distribution below the knee but is now receding down towards his chronic venous stasis changes. He initially had erythema running up the internal leg past the knee but that has now receded. Results Laboratory Results: 04/06/18 03:50 04/06/18 03:50 04/06/18 04/06/18 03:50 03:50 WBC 8.9 RBC 4.24 L Hgb 12.6 L Hct 37.0 L MCV 87 MCH 29.8 MCHC 34.1 RDW 13.9 Plt Count 263 Seg Neutrophils % Not Reportable Lymphocytes % Not Reportable Monocytes % Not Reportable Eosinophils % Not Reportable Basophils % Not Reportable Absolute Neutrophils Not Reportable Absolute Lymphocytes Not Reportable Absolute Monocytes Not Reportable Absolute Eosinophils Not Reportable Absolute Basophils Not Reportable Sodium 140.5 Potassium 4.2 Chloride 105 Carbon Dioxide 27 Anion Gap 9 BUN 21 H Creatinine 1.15 Est GFR ( Amer) > 60 Est GFR (Non-Af Amer) > 60 Glucose 60 L Calcium 9.4 Magnesium 1.9 Assessment & Plan - Diagnosis (1) Bacteremia Is this a current diagnosis for this admission?: Yes Plan: Gram-negative rods growing in one set of blood cultures. For this reason I will continue the PIP/tazo. Will await final culture results before escalating antibiotics. (2) Cellulitis of left leg Is this a current diagnosis for this admission?: Yes Plan: Has improved slowly with Zosyn and vancomycin. Recently had a cellulitis of the right leg which was treated with doxycycline so at this point I am going to discontinue his vancomycin and start doxycycline 100 mg p.o. twice daily and continue the Zosyn for the gram-negative blood culture. (3) Diabetes mellitus type 2 in obese Is this a current diagnosis for this admission?: Yes Plan: She has insulin pump. His blood glucose is much better controlled. I have not added long-acting insulin. (4) Stasis dermatitis of both legs Is this a current diagnosis for this admission?: Yes Plan: Chronic. (5) Morbid obesity with BMI of 40.0-44.9, adult Is this a current diagnosis for this admission?: Yes Plan: If patient is amenable we will discussed the importance of weight loss. - Time Time Spent with patient: 15-24 minutes Anticipated discharge: Home - Inpatient Certification Based on my medical assessment, after consideration of the patient's comorbidities, presenting symptoms, or acuity I expect that the services needed warrant INPATIENT care.: Yes I certify that my determination is in accordance with my understanding of Medicare's requirements for reasonable and necessary INPATIENT services [42 CFR 412.3e].: Yes Medical Necessity: Need for IV Antibiotics
[2018-04-06] MEDS ORDERED: DOXYCYCLINE HYCLATE 100 MG TABLET PO ONE (22:08)
[2018-04-06] MEDS: DOXYCYCLINE HYCLATE 100 MG TABLET PO SCH (22:27)
[2018-04-07] MEDS: PIPERACILLIN SODIUM/TAZOBACTAM 3.375 GM in NORMAL SALINE 100 ML IV SCH ×4 (03:30→20:00)
[2018-04-07] MEDS: HEPARIN SOD (PORCINE) 5,000 UNIT/ML 1 ML SYRINGE SUBCUT SCH ×3 (05:16→21:33)
[2018-04-07 05:18] LABS: HEMATOCRIT 37.5 % (37.9-51.0); HEMOGLOBIN 12.7 g/dL (13.5-17.0); MEAN CORPUSCULAR HEMOGLOBIN 29.5 pg (27.0-33.4); MEAN CORPUSCULAR HGB CONC 33.8 g/dL (32.0-36.0); MEAN CORPUSCULAR VOLUME 87 fl (80-97); PLATELET COUNT 277 10^3/uL (150-450); RED CELL DISTRIBUTION WIDTH 13.6 % (11.5-14.0); WHITE BLOOD COUNT 8.6 10^3/uL (4.0-10.5)
[2018-04-07 05:29] LABS: ANION GAP 6 (5-19); BLOOD UREA NITROGEN 21 mg/dL (7-20); CALCIUM 9.7 mg/dL (8.4-10.2); CARBON DIOXIDE 29 mmol/L (22-30); CHLORIDE 105 mmol/L (98-107); GLUCOSE 134 mg/dL (75-110); POTASSIUM 4.9 mmol/L (3.6-5.0); SODIUM 140.1 mmol/L (137-145)
[2018-04-07 06:23] LABS: ABSOLUTE LYMPHOCYTES# (MANUAL) 1.8 10^3/uL (0.5-4.7); ABSOLUTE MONOCYTES # (MANUAL) 0.6 10^3/uL (0.1-1.4); ABSOLUTE NEUTROPHILS# (MANUAL) 5.8 10^3/uL (1.7-8.2); BASOPHILS % (MANUAL) 0 % (0-2); EOSINOPHILS % (MANUAL) 5 % (0-6); LYMPHOCYTES % (MANUAL) 21 % (13-45); MONOCYTES % (MANUAL) 7 % (3-13); PLATELET COMMENT ADEQUATE; SEGMENTED NEUTROPHILS % (MAN) 67 % (42-78); TOTAL CELLS COUNTED 100
[2018-04-07] MEDS: METFORMIN HCL 500 MG TABLET PO SCH ×2 (08:05→15:54)
[2018-04-07] MEDS: LISINOPRIL 10 MG TABLET PO SCH (08:06)
[2018-04-07] MEDS: TAMSULOSIN HCL 0.4 MG CAP.SR.24H PO SCH (08:06)
[2018-04-07] MEDS: VENLAFAXINE HCL 75 MG CAP.SR.24H PO SCH (08:06)
[2018-04-07] MEDS: DOCUSATE SODIUM 100 MG CAPSULE PO SCH ×2 (09:48→17:15)
[2018-04-07] MEDS: FAMOTIDINE 20 MG TABLET PO SCH ×2 (09:49→21:33)
[2018-04-07] MEDS: DOXYCYCLINE HYCLATE 100 MG TABLET PO SCH ×2 (09:49→21:34)
--- NOTE | 2018-04-07 15:55 | PDOC PROGRESS REPORT ---
Subjective Progress Note for:: 04/07/18 Subjective:: Left leg pain improved, swelling and redness improving. Tylenol-helping with pain. No chest pain or difficulty breathing. No fevers or chills. He denies dysuria and is moving his bowels okay. Reason For Visit: LEFT LOWER EXTREMITY CELLULITIS Physical Exam Vital Signs: Temp Pulse Resp BP Pulse Ox 97.8 F 84 16 105/84 100 04/07/18 11:42 04/07/18 11:42 04/07/18 11:42 04/07/18 11:42 04/07/18 11:42 Intake & Output 04/06/18 04/07/18 04/08/18 06:59 06:59 06:59 Intake Total 2040 2576 100 Balance 0 2576 100 Weight 96.2 kg 98.5 kg General appearance: PRESENT: no acute distress, obese Head exam: ABSENT: atraumatic, normocephalic Eye exam: ABSENT: conjunctival injection, scleral icterus Ear exam: PRESENT: normal external ear exam Mouth exam: PRESENT: tongue midline Respiratory exam: PRESENT: few rales, rhonchi, wheezes. ABSENT: unlabored Cardiovascular exam: PRESENT: RRR. ABSENT: systolic murmur Pulses: PRESENT: normal radial pulses GI/Abdominal exam: PRESENT: normal bowel sounds, soft. ABSENT: distended, tenderness Rectal exam: PRESENT: deferred Extremities exam: PRESENT: pedal edema. ABSENT: joint swelling Neurological exam: PRESENT: alert, awake, oriented to person, oriented to place , oriented to situation, CN II-XII grossly intact Psychiatric exam: PRESENT: appropriate affect. ABSENT: anxious Skin exam: PRESENT: other - Patient has chronic bilateral venous stasis changes. Left leg has superimposed erythema which originally had sock-like distribution below the knee but is now receding down towards his chronic venous stasis changes. Results Laboratory Results: 04/07/18 04:00 04/07/18 04:00 04/07/18 04/07/18 04:00 04:00 WBC 8.6 RBC 4.30 L Hgb 12.7 L Hct 37.5 L MCV 87 MCH 29.5 MCHC 33.8 RDW 13.6 Plt Count 277 Seg Neutrophils % Not Reportable Lymphocytes % Not Reportable Monocytes % Not Reportable Eosinophils % Not Reportable Basophils % Not Reportable Absolute Neutrophils Not Reportable Absolute Lymphocytes Not Reportable Absolute Monocytes Not Reportable Absolute Eosinophils Not Reportable Absolute Basophils Not Reportable Sodium 140.1 Potassium 4.9 Chloride 105 Carbon Dioxide 29 Anion Gap 6 BUN 21 H Creatinine 1.32 H Est GFR ( Amer) > 60 Est GFR (Non-Af Amer) 53 L Glucose 134 H Calcium 9.7 Magnesium 1.8 Assessment & Plan - Diagnosis (1) Bacteremia Is this a current diagnosis for this admission?: Yes (2) Cellulitis of left leg Is this a current diagnosis for this admission?: Yes (3) Diabetes mellitus type 2 in obese Is this a current diagnosis for this admission?: Yes (4) Stasis dermatitis of both legs Is this a current diagnosis for this admission?: Yes (5) Morbid obesity with BMI of 40.0-44.9, adult Is this a current diagnosis for this admission?: Yes - Plan Summary Plan Summary: Will continue on doxycycline and Zosyn for now. Repeat blood cultures done, follow results/sensitivity of both old and current blood cultures. Follow CBC and Chem-7 in a.m.
[2018-04-07] MEDS: HYDROXYZINE PAMOATE 50 MG CAPSULE PO PRN (17:34)
[2018-04-08] MEDS: PIPERACILLIN SODIUM/TAZOBACTAM 3.375 GM in NORMAL SALINE 100 ML IV SCH ×4 (03:01→23:01)
[2018-04-08] MEDS: HEPARIN SOD (PORCINE) 5,000 UNIT/ML 1 ML SYRINGE SUBCUT SCH ×3 (05:24→22:59)
[2018-04-08 05:26] LABS: HEMATOCRIT 38.3 % (37.9-51.0); HEMOGLOBIN 12.9 g/dL (13.5-17.0); MEAN CORPUSCULAR HEMOGLOBIN 29.4 pg (27.0-33.4); MEAN CORPUSCULAR HGB CONC 33.7 g/dL (32.0-36.0); MEAN CORPUSCULAR VOLUME 87 fl (80-97); PLATELET COUNT 292 10^3/uL (150-450); RED BLOOD COUNT 4.39 10^6/uL (4.35-5.55); RED CELL DISTRIBUTION WIDTH 13.7 % (11.5-14.0); WHITE BLOOD COUNT 9.7 10^3/uL (4.0-10.5)
[2018-04-08 05:44] LABS: ANION GAP 10 (5-19); BLOOD UREA NITROGEN 23 mg/dL (7-20); CALCIUM 9.7 mg/dL (8.4-10.2); CARBON DIOXIDE 26 mmol/L (22-30); CHLORIDE 105 mmol/L (98-107); GLUCOSE 158 mg/dL (75-110); POTASSIUM 4.5 mmol/L (3.6-5.0); SODIUM 140.5 mmol/L (137-145)
[2018-04-08 05:46] LABS: ABSOLUTE LYMPHOCYTES# (MANUAL) 2.1 10^3/uL (0.5-4.7); ABSOLUTE MONOCYTES # (MANUAL) 0.6 10^3/uL (0.1-1.4); BASOPHILS % (MANUAL) 0 % (0-2); EOSINOPHILS % (MANUAL) 10 % (0-6); LYMPHOCYTES % (MANUAL) 22 % (13-45); MONOCYTES % (MANUAL) 6 % (3-13); SEGMENTED NEUTROPHILS % (MAN) 57 % (42-78); TOTAL CELLS COUNTED 100
[2018-04-08 05:49] LABS: PLATELET CLUMPS PRESENT; PLATELET COMMENT ADEQUATE; PLATELET LARGE PRESENT; POLYCHROMASIA SLIGHT; RBC MORPHOLOGY COMMENT NORMO-CYTIC/CHROMIC; TOXIC GRANULATION SLIGHT
[2018-04-08 05:51] LABS: METAMYELOCYTES % (MANUAL) 1 % (0); MYELOCYTES % (MANUAL) 4 % (0)
[2018-04-08] MEDS ORDERED: ONDANSETRON HCL INJ/PF 4 MG/2 ML SDV IV PRN (07:30)
[2018-04-08] MEDS ORDERED: ONDANSETRON 4 MG TAB.RAPDIS PO PRN (07:30)
[2018-04-08] MEDS: METFORMIN HCL 500 MG TABLET PO SCH ×2 (08:15→16:10)
[2018-04-08] MEDS: TAMSULOSIN HCL 0.4 MG CAP.SR.24H PO SCH (08:16)
[2018-04-08] MEDS: VENLAFAXINE HCL 75 MG CAP.SR.24H PO SCH (08:16)
[2018-04-08] MEDS: LISINOPRIL 10 MG TABLET PO SCH (08:16)
[2018-04-08] MEDS: FAMOTIDINE 20 MG TABLET PO SCH ×2 (09:11→23:00)
[2018-04-08] MEDS: DOCUSATE SODIUM 100 MG CAPSULE PO SCH ×2 (09:11→17:49)
[2018-04-08] MEDS: DOXYCYCLINE HYCLATE 100 MG TABLET PO SCH (09:12)
[2018-04-08 15:56] LABS: PATH REVIEW PATHOLOGIST REVIEWED
--- NOTE | 2018-04-08 19:33 | PDOC PROGRESS REPORT ---
Subjective Progress Note for:: 04/08/18 Subjective:: Left leg pain continues to improve, swelling and redness improving. Tylenol- helping with pain. No chest pain or difficulty breathing. No fevers or chills. He denies dysuria and is moving his bowels okay. Reason For Visit: LEFT LOWER EXTREMITY CELLULITIS Physical Exam Vital Signs: Temp Pulse Resp BP Pulse Ox 98.1 F 78 18 132/65 H 100 04/08/18 11:06 04/08/18 11:06 04/08/18 11:06 04/08/18 11:06 04/08/18 11:06 Intake & Output 04/07/18 04/08/18 04/09/18 06:59 06:59 06:59 Intake Total 2576 2418 Balance 2576 2418 Weight 98.5 kg 97.6 kg General appearance: PRESENT: no acute distress, obese Head exam: ABSENT: atraumatic, normocephalic Eye exam: ABSENT: conjunctival injection, scleral icterus Ear exam: PRESENT: normal external ear exam Mouth exam: PRESENT: tongue midline Respiratory exam: PRESENT: clear. ABSENT: unlabored Cardiovascular exam: PRESENT: RRR. ABSENT: systolic murmur Pulses: PRESENT: normal radial pulses GI/Abdominal exam: PRESENT: normal bowel sounds, soft. ABSENT: distended, tenderness Rectal exam: PRESENT: deferred Extremities exam: PRESENT: pedal edema. ABSENT: joint swelling Neurological exam: PRESENT: alert, awake, oriented to person, oriented to place , oriented to situation, CN II-XII grossly intact Psychiatric exam: PRESENT: appropriate affect. ABSENT: anxious Skin exam: PRESENT: other - Patient has chronic bilateral venous stasis changes. Left leg has superimposed erythema which originally had sock-like distribution below the knee but is now receding down towards his chronic venous stasis changes. Results Laboratory Results: 04/08/18 04:18 04/08/18 04:18 04/08/18 04/08/18 04:18 04:18 WBC 9.7 RBC 4.39 Hgb 12.9 L Hct 38.3 MCV 87 MCH 29.4 MCHC 33.7 RDW 13.7 Plt Count 292 Seg Neutrophils % Not Reportable Lymphocytes % Not Reportable Monocytes % Not Reportable Eosinophils % Not Reportable Basophils % Not Reportable Absolute Neutrophils Not Reportable Absolute Lymphocytes Not Reportable Absolute Monocytes Not Reportable Absolute Eosinophils Not Reportable Absolute Basophils Not Reportable Sodium 140.5 Potassium 4.5 Chloride 105 Carbon Dioxide 26 Anion Gap 10 BUN 23 H Creatinine 1.28 H Est GFR ( Amer) > 60 Est GFR (Non-Af Amer) 55 L Glucose 158 H Calcium 9.7 Assessment & Plan - Diagnosis (1) Bacteremia Is this a current diagnosis for this admission?: Yes (2) Cellulitis of left leg Is this a current diagnosis for this admission?: Yes (3) Diabetes mellitus type 2 in obese Is this a current diagnosis for this admission?: Yes (4) Stasis dermatitis of both legs Is this a current diagnosis for this admission?: Yes (5) Morbid obesity with BMI of 40.0-44.9, adult Is this a current diagnosis for this admission?: Yes - Plan Summary Plan Summary: Blood culture growing Flavobacterium species, sensitivity pending. Patient not tolerating doxycycline and it has been discontinued. We will continue Zosyn for now. Repeat blood cultures were done done 04/07/18, please follow results. Follow CBC and Chem-7 in a.m.
[2018-04-09] MEDS: PIPERACILLIN SODIUM/TAZOBACTAM 3.375 GM in NORMAL SALINE 100 ML IV SCH ×4 (03:57→20:59)
[2018-04-09] MEDS: HEPARIN SOD (PORCINE) 5,000 UNIT/ML 1 ML SYRINGE SUBCUT SCH ×3 (05:37→22:22)
[2018-04-09 05:55] LABS: HEMATOCRIT 37.4 % (37.9-51.0); HEMOGLOBIN 12.7 g/dL (13.5-17.0); MEAN CORPUSCULAR HEMOGLOBIN 29.6 pg (27.0-33.4); MEAN CORPUSCULAR VOLUME 87 fl (80-97); PLATELET COUNT 314 10^3/uL (150-450); RED CELL DISTRIBUTION WIDTH 14.1 % (11.5-14.0); WHITE BLOOD COUNT 9.1 10^3/uL (4.0-10.5)
[2018-04-09 06:15] LABS: ANION GAP 6 (5-19); BLOOD UREA NITROGEN 24 mg/dL (7-20); CALCIUM 9.4 mg/dL (8.4-10.2); CARBON DIOXIDE 28 mmol/L (22-30); CHLORIDE 106 mmol/L (98-107); GLUCOSE 142 mg/dL (75-110); POTASSIUM 4.3 mmol/L (3.6-5.0); SODIUM 140.3 mmol/L (137-145)
[2018-04-09 06:19] LABS: ABSOLUTE LYMPHOCYTES# (MANUAL) 3.1 10^3/uL (0.5-4.7); ABSOLUTE MONOCYTES # (MANUAL) 0.9 10^3/uL (0.1-1.4); ABSOLUTE NEUTROPHILS# (MANUAL) 4.8 10^3/uL (1.7-8.2); BAND NEUTROPHILS % (MANUAL) 1 % (3-5); BASOPHILS % (MANUAL) 0 % (0-2); EOSINOPHILS % (MANUAL) 3 % (0-6); LYMPHOCYTES % (MANUAL) 29 % (13-45); METAMYELOCYTES % (MANUAL) 1 % (0); MONOCYTES % (MANUAL) 10 % (3-13); MYELOCYTES % (MANUAL) 2 % (0); SEGMENTED NEUTROPHILS % (MAN) 49 % (42-78); TOTAL CELLS COUNTED 100
[2018-04-09 06:20] LABS: ANISOCYTOSIS SLIGHT; PLATELET COMMENT ADEQUATE; POLYCHROMASIA SLIGHT; TOXIC GRANULATION SLIGHT
[2018-04-09] MEDS: DOCUSATE SODIUM 100 MG CAPSULE PO SCH ×2 (10:03→16:59)
[2018-04-09] MEDS: LISINOPRIL 10 MG TABLET PO SCH (10:07)
[2018-04-09] MEDS: VENLAFAXINE HCL 75 MG CAP.SR.24H PO SCH (10:07)
[2018-04-09] MEDS: METFORMIN HCL 500 MG TABLET PO SCH ×2 (10:07→17:02)
[2018-04-09] MEDS: TAMSULOSIN HCL 0.4 MG CAP.SR.24H PO SCH (10:07)
[2018-04-09] MEDS: FAMOTIDINE 20 MG TABLET PO SCH ×2 (10:08→22:22)
--- NOTE | 2018-04-09 19:32 | PDOC PROGRESS REPORT ---
Subjective Progress Note for:: 04/09/18 Subjective:: This is a 72 years old male patient admitted for left leg cellulitis. Patient has underlying l venous stasis and has history of recurrent cellulitis. Currently his cellulitis subsiding. Since his blood culture grew gram-negative bacteria we will continue his current antibiotics. Reason For Visit: LEFT LOWER EXTREMITY CELLULITIS Physical Exam Vital Signs: Temp Pulse Resp BP Pulse Ox 98.2 F 86 18 135/53 H 97 04/09/18 15:06 04/09/18 15:06 04/09/18 15:06 04/09/18 15:06 04/09/18 15:06 Intake & Output 04/08/18 04/09/18 04/10/18 06:59 06:59 06:59 Intake Total 2418 2360 1327 Balance 2418 2360 1327 Weight 97.6 kg 97.6 kg General appearance: PRESENT: no acute distress Head exam: PRESENT: atraumatic Eye exam: PRESENT: conjunctiva pink Neck exam: ABSENT: carotid bruit, JVD, lymphadenopathy, thyromegaly Respiratory exam: PRESENT: clear to auscultation prabhakar. ABSENT: rales, rhonchi, wheezes Cardiovascular exam: PRESENT: RRR. ABSENT: diastolic murmur, rubs, systolic murmur GI/Abdominal exam: PRESENT: normal bowel sounds, soft. ABSENT: distended, guarding, mass, organolmegaly, rebound, tenderness Extremities exam: PRESENT: other - Left leg venous stasis. Erythema on both legs is decreasing. Neurological exam: PRESENT: alert, awake, oriented to time, oriented to situation Psychiatric exam: PRESENT: normal mood Results Laboratory Results: 04/09/18 04:38 04/09/18 04:38 04/09/18 04/09/18 04:38 04:38 WBC 9.1 RBC 4.30 L Hgb 12.7 L Hct 37.4 L MCV 87 MCH 29.6 MCHC 34.0 RDW 14.1 H Plt Count 314 Seg Neutrophils % Not Reportable Lymphocytes % Not Reportable Monocytes % Not Reportable Eosinophils % Not Reportable Basophils % Not Reportable Absolute Neutrophils Not Reportable Absolute Lymphocytes Not Reportable Absolute Monocytes Not Reportable Absolute Eosinophils Not Reportable Absolute Basophils Not Reportable Sodium 140.3 Potassium 4.3 Chloride 106 Carbon Dioxide 28 Anion Gap 6 BUN 24 H Creatinine 1.27 H Est GFR ( Amer) > 60 Est GFR (Non-Af Amer) 56 L Glucose 142 H Calcium 9.4 Assessment & Plan - Diagnosis (1) Cellulitis of left leg Is this a current diagnosis for this admission?: Yes Plan: Continue current antibiotics and repeat blood culture (2) Diabetes mellitus type 2 in obese Is this a current diagnosis for this admission?: Yes Plan: Continue current regimen. (3) Hypertension Qualifiers: Hypertension type: essential hypertension Qualified Code(s): I10 - Essential (primary) hypertension Is this a current diagnosis for this admission?: Yes Plan: Continue current regimen (4) Morbid obesity with BMI of 40.0-44.9, adult Is this a current diagnosis for this admission?: Yes Plan: Lifestyle modification advised. (5) Bacteremia due to Gram-negative bacteria Is this a current diagnosis for this admission?: Yes Plan: Continue current treatment.
[2018-04-10] MEDS: PIPERACILLIN SODIUM/TAZOBACTAM 3.375 GM in NORMAL SALINE 100 ML IV SCH ×2 (02:44→09:03)
[2018-04-10] MEDS: HEPARIN SOD (PORCINE) 5,000 UNIT/ML 1 ML SYRINGE SUBCUT SCH (06:58)
[2018-04-10] MEDS: METFORMIN HCL 500 MG TABLET PO SCH (07:55)
[2018-04-10] MEDS: TAMSULOSIN HCL 0.4 MG CAP.SR.24H PO SCH (07:55)
[2018-04-10] MEDS: VENLAFAXINE HCL 75 MG CAP.SR.24H PO SCH (07:55)
[2018-04-10] MEDS: LISINOPRIL 10 MG TABLET PO SCH (07:57)
[2018-04-10] MEDS: DOCUSATE SODIUM 100 MG CAPSULE PO SCH (09:01)
[2018-04-10] MEDS: FAMOTIDINE 20 MG TABLET PO SCH (09:02)
--- NOTE | 2018-04-10 09:47 | PDOC DISCHARGE SUMMARY ---
General - Admit/Disc Date/PCP Admission Date/Primary Care Provider: 04/04/18 01:23 FABIAN KOLB-Rebeka Discharge Date: 04/10/18 - Discharge Diagnosis (1) Cellulitis of left leg Is this a current diagnosis for this admission?: Yes (2) Diabetes mellitus type 2 in obese Is this a current diagnosis for this admission?: Yes (3) Hypertension Is this a current diagnosis for this admission?: Yes (4) Morbid obesity with BMI of 40.0-44.9, adult Is this a current diagnosis for this admission?: Yes (5) Bacteremia due to Gram-negative bacteria Is this a current diagnosis for this admission?: Yes - Additional Information Resuscitation Status: Full Code Home Medications: Insulin Aspart [Novolog Insulin (Aspart) 100 unit/mL] 90 units PUMP DAILY 08/02/16 Lisinopril [Prinivil] 20 mg PO DAILY 08/02/16 Metformin HCl [Metformin HCl ER] 2,000 mg PO BID 08/02/16 Venlafaxine HCl [Effexor Xr] 150 mg PO DAILY 08/02/16 Aspirin [Adult Aspirin] 81 mg PO DAILY 04/04/18 Furosemide [Lasix 20 mg Tablet] 20 mg PO DAILY 04/04/18 History of Present Illness History of Present Illness: ROWAN ISLAS is a 72 year old male who presented to the emergency room with a 2-day history of gradually increasing redness with swelling, pain and increased warmth in his left lower extremity. He states that his left lower leg begin to be significantly red and inflamed starting on Sunday of this week. The redness and swelling with increased warmth and pain continued to increase and spread up from the ankle area through the anterior tibial surface and calf up to the knee and above the knee on the medial aspect of the thigh stretching almost up to his groin. He did have nausea but had not vomited until after he arrived at the emergency room. He further denied fever, chills, dyspnea, cough, joint pain or swelling. He does have a chronic rash involving his lower extremities which appears to be of an eczematoid nature. He has not identified any aggravating or ameliorating factors for his redness and swelling but does admit to having prior similar episodes on several occasions the most recent of which involved his right lower extremity a couple of weeks ago. On that occasion he was treated with oral doxycycline and had a good response. In the emergency room his workup was essentially unremarkable but because of his rapidly spreading erythema it was felt that intravenous antibiotic therapy was appropriate for the first 24-72 hours based on response to therapy. He was therefore admitted to the hospital for further antibiotic therapy and continued observation of his infectious process. Hospital Course Hospital Course: This is a 72 years old male patient with past medical history of hypertension, hyperlipidemia, diabetes mellitus and chronic venous stasis admitted for left leg cellulitis. His blood culture grew flava bacterium species and patient has been managed with Zosyn for 7 days. The swelling and erythema of the left leg has subsided markedly. This morning I seen patient resting in bed comfortably he is not in pain or any form of distress vital signs are stable his blood works are also within normal limits. Patient is stable enough to go home today. I will continue all his home medications. Patient also advised to do lifestyle modification. Physical Exam Vital Signs: Temp Pulse Resp BP Pulse Ox 97.7 F 75 18 115/50 L 98 04/10/18 07:10 04/10/18 07:10 04/10/18 07:10 04/10/18 07:10 04/10/18 07:10 Intake & Output 04/09/18 04/10/18 04/11/18 06:59 06:59 06:59 Intake Total 2360 1825 Balance 2360 1825 Weight 97.6 kg 97.7 kg General appearance: PRESENT: no acute distress Head exam: PRESENT: atraumatic Eye exam: PRESENT: conjunctiva pink Neck exam: ABSENT: carotid bruit, JVD, lymphadenopathy, thyromegaly Respiratory exam: PRESENT: clear to auscultation prabhakar. ABSENT: rales, rhonchi, wheezes Cardiovascular exam: PRESENT: RRR. ABSENT: diastolic murmur, rubs, systolic murmur GI/Abdominal exam: PRESENT: normal bowel sounds, soft. ABSENT: distended, guarding, mass, organolmegaly, rebound, tenderness Extremities exam: PRESENT: other - Left leg mild erythema Results Laboratory Results: 04/09/18 04:38 04/09/18 04:38 Qualifiers - * PATIENT BEING DISCHARGED WITH ANY OF THE FOLLOWING DIAGNOSIS: No
[2018-04-10 09:55] VITALS: BP 132/52
== END 2018-04-10 11:03 | disposition home or self-care (01) | DRG 603 ==
LOC: ER 16:35 → EH 04-04 01:23 → 5 04-04 03:33
PROVIDERS: ADMIT Emergency Medicine; ATTEND Emergency Medicine
DX: L03.116 Cellulitis of left lower limb (principal); R78.81 Bacteremia; Z68.41 Body mass index [BMI] 40.0-44.9, adult; I10 Essential (primary) hypertension; E78.00 Pure hypercholesterolemia, unspecified; E11.9 Type 2 diabetes mellitus without complications; I87.2 Venous insufficiency (chronic) (peripheral); E66.01 Morbid (severe) obesity due to excess calories; Z96.41 Presence of insulin pump (external) (internal); Z96.652 Presence of left artificial knee joint; Z79.4 Long term (current) use of insulin; Z79.84 Long term (current) use of oral hypoglycemic drugs; Z79.82 Long term (current) use of aspirin; Z79.899 Other long term (current) drug therapy
CPT/HCPCS: 36415; 80048; 80053; 80202; 82803; 82962; 83036; 83605; 83735; 85025; 85610; 87040; 87077; 93005; 93010; 96361; 96365; 96367; 96375; 99285; J1644; J1815; J2405; J2543; J3370; J3490; J7030; J7060

== ENCOUNTER 2018-05-02 16:46 | Emergency (ER) | payer MEDICARE, BC ==
[2018-05-02] MEDS ORDERED: IBUPROFEN 600 MG TABLET PO ONE (18:10)
[2018-05-02] MEDS ORDERED: DIPH/PERTUSS(ACELL)/TETANUS VAC/PF 0.5 ML SYR (>=10YO) IM ONE (18:10)
--- NOTE | 2018-05-02 18:12 | ER Document Report ---
ED Medical Screen (RME) - General Chief Complaint: Finger Injury Stated Complaint: FINGER LACERATION Time Seen by Provider: 05/02/18 18:08 Notes: 72 years old male sustained a index finger laceration on the left hand. Which was deep therefore present to the ED. TRAVEL OUTSIDE OF THE [place] IN LAST 30 DAYS: No - Related Data Allergies/Adverse Reactions: sulfamethoxazole [From Septra DS] Allergy (Mild, Verified 05/02/18 16:50) Pruritis trimethoprim [From Septra DS] Allergy (Mild, Verified 05/02/18 16:50) Pruritis codeine [Codeine] Allergy (Unknown, Verified 05/02/18 16:50) swelling Past Medical History - Past Medical History Cardiac Medical History: Reports: Hx Hypercholesterolemia, Hx Hypertension Pulmonary Medical History: Denies: Hx Asthma, Hx COPD Neurological Medical History: Denies: Hx Seizures Endocrine Medical History: Reports: Hx Diabetes Mellitus Type 2. Denies: Hx Diabetes Mellitus Type 1, Hx Hyperthyroidism Renal/ Medical History: Denies: Hx Peritoneal Dialysis GI Medical History: Denies: Hx Cirrhosis, Hx Hepatitis Musculoskeltal Medical History: Denies Hx Arthritis, Denies Hx Gout Skin Medical History: Reports Hx Eczema, Denies Hx Psoriasis Infectious Medical History: Denies: Hx Hepatitis Past Surgical History: Reports: Hx Orthopedic Surgery - left knee, bilateral rotator cuff - Immunizations Hx Diphtheria, Pertussis, Tetanus Vaccination: Yes Physical Exam - Vital signs Vitals: Temp Pulse Resp BP Pulse Ox 97.8 F 99 20 153/81 H 97 05/02/18 16:58 05/02/18 16:58 05/02/18 16:58 05/02/18 16:58 05/02/18 16:58 Course - Vital Signs Vital signs: Temp Pulse Resp BP Pulse Ox 97.8 F 99 20 153/81 H 97 05/02/18 16:58 05/02/18 16:58 05/02/18 16:58 05/02/18 16:58 05/02/18 16:58 Doctor's Discharge - Discharge Referrals: MARTIN LOVE FNP-C [Primary Care Provider] - Follow up as needed
[2018-05-02] MEDS ORDERED: LIDOCAINE 1% INJ-PF (10 MG/ML) 30 ML SDV INJ ONE (19:34)
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
[2018-05-02 21:57] VITALS: BP 145/78
== END 2018-05-02 21:05 | disposition home or self-care (01) ==
LOC: ER 16:46
PROC: 0HQGXZZ Repair Left Hand Skin, External Approach (ICD-10-PCS; principal; 2018-05-02)
DX: S61.211A Laceration without foreign body of left index finger without damage to nail, initial encounter (principal); E11.9 Type 2 diabetes mellitus without complications; W45.8XXA Other foreign body or object entering through skin, initial encounter; I10 Essential (primary) hypertension
CPT/HCPCS: 99283; 90471; 90715; 12001; A9270; J3490

== ENCOUNTER → 2019-07-17 | Day surgery (SDC) | payer MEDICARE, BC ==
--- NOTE | 2019-07-17 14:05 | RADIOLOGY REPORT (SQ) ---
EXAM DESCRIPTION: ARTHRO SHOULDER INJECTION; FLUORO/NEEDLE PLACEMENT COMPLETED DATE/TIME: 07/17/2019 1:53 pm REASON FOR STUDY: M75.102 UNSP ROTATR-CUFF TEAR/RUPTR OF LEFT SHOULDER, NOT TRAUMA M75.102 UNSP ROT ATR-CUFF TEAR/RUPTR OF LEFT SHOULDER, NOT TR COMPARISON: None. FLUOROSCOPY TIME: 0.07 minutes Spot images saved to PACS. LIMITATIONS: None. PROCEDURE: Procedure, risks, benefits and alternatives explained to patient who then gave written co nsent. The left shoulder was marked and a time out was called for correct procedure verification. Po sterior entry site marked using fluoroscopic guidance. Shoulder prepped and draped using sterile elio hnique. Local anesthesia achieved using 1% lidocaine injection. Hypodermic needle introduced into t he joint space under direct fluoroscopic visualization. Non-ionic contrast instilled to confirm intra -articular position. Dilute gadolinium solution then injected. Needle removed and entry site covered with sterile bandage. No immediate complications noted. TECHNIQUE: Digital images acquired during fluoroscopy and stored on PACS. Patient immediately take n to the MR suite for additional imaging. INJECTION LOCATION: Posterior left shoulder. CONTRAST TYPE AND AMOUNT: 12 mL Dotarem/Saline mixture. IMPRESSION: SUCCESSFUL NEEDLE PLACEMENT AND INJECTION FOR LEFT SHOULDER MR ARTHROGRAM USING POSTERIO R APPROACH. COMMENT: Quality ID [id number]: Final reports for procedures using fluoroscopy that document radiation exp osure indices, or exposure time and number of fluorographic images (if radiation exposure indices are not available) TECHNICAL DOCUMENTATION: JOB ID: [id number] 2010 [employer]- All Rights Reserved Reading location - IP/workstation name: [email or web address]
--- NOTE | 2019-07-18 11:25 | RADIOLOGY REPORT (SQ) ---
EXAM DESCRIPTION: MRI LT UPPER JOINT WITH COMPLETED DATE/TIME: 07/17/2019 2:21 pm REASON FOR STUDY: M75.102 UNSP ROTATR-CUFF TEAR/RUPTR OF LEFT SHOULDER, NOT TRAUMA M75.102 UNSP ROT ATR-CUFF TEAR/RUPTR OF LEFT SHOULDER, NOT TR COMPARISON: None. TECHNIQUE: Post arthrogram left shoulder images acquired and stored on PACS. Oblique coronal, obliqu e sagittal, and axial imaging to include fat sensitive sequences as T1, water sensitive sequences as FST2/STIR, and contrast sensitive sequences as FST1. LIMITATIONS: None. FINDINGS: JOINT DISTENTION: Adequate distention for interpretation. BONE MARROW AND CORTEX: Artifact from tacks over the greater tuberosity from prior rotator cuff repai r. No marrow signal abnormalities worrisome for occult fracture or aggressive marrow replacement pro cess AC JOINT: Type II acromion. Artifact from postoperative change at the AC joint. No bulky bony spurri ng. GLENOHUMERAL JOINT: Mild chondromalacia glenohumeral joint with bony spurring. No malalignment ROTATOR CUFF: Chronic appearing full-thickness supraspinatus tendon with proximal retraction, best sh own on coronal image 11. Supraspinatus muscle atrophy on sagittal image 17. Tear anterior half infr aspinatus tendon without atrophy of the muscle. Subscapularis is intact. LABRUM AND BICEPS LABRAL COMPLEX: Intra-articular long head biceps tendon is diffusely high in signal from tendinopathy. Superior labral attachment is grossly intact. No labral tear INFERIOR LABRAL COMPLEX: Bony glenoid and labrum intact. IGHL intact without thickening or tear. No p aralabral cysts. ADJACENT SOFT TISSUES: No masses or nodes. OTHER: No other significant finding. IMPRESSION: Chronic appearing full-thickness supraspinatus tear Thinning anterior half infraspinatus tendon Intra-articular long head biceps tendinopathy TECHNICAL DOCUMENTATION: JOB ID: [id number] 2010 [employer]- All Rights Reserved Reading location - IP/workstation name: [email or web address]
== END ==
LOC: RAD 12:54
PROVIDERS: ATTEND Orthopaedic Surgery Sports Medicine
DX: M75.122 Complete rotator cuff tear or rupture of left shoulder, not specified as traumatic (principal); M75.22 Bicipital tendinitis, left shoulder; M94.212 Chondromalacia, left shoulder
CPT/HCPCS: 73222; 77002; 23350; A9576

== ENCOUNTER → 2019-10-02 | Outpatient (CLI) | payer MEDICARE, BC ==
--- NOTE | 2019-10-02 15:20 | XCELERA REPORT ---
[address] [address] Transthoracic Echocardiogram Report Name: ROWAN ISLAS Age: 74 yrs Gender: Male : 1945 Patient Status: Outpatient Patient Location: Study Date: 10/02/2019 08:59 AM History: Dyspnea Height: 65 in Weight: 240 lb BSA: 2.1 m2 Procedure: A complete two-dimensional transthoracic echocardiogram was performed (2D, M-mode, spectral and color flow Doppler). The study was technically difficult with many images being suboptimal in quality. Reason For Study: DYSPNEA Ordering Physician: ANA M HURD Performed By: Daiana Hussein Interpretation Summary Left ventricular systolic function is normal. The Ejection Fraction estimate is 55-60% Doppler measurements suggest impaired left ventricular relaxation, which is associated with grade I/IV or mild diastolic dysfunction The right ventricle is normal in size and function. There is no mitral regurgitation noted. There is no aortic valve stenosis There is a trace amount of tricuspid regurgitation Minimal pericardial effusion. MMode/2D Measurements & Calculations RVDd: 2.0 cm LVIDd: 4.7 cm FS: 29.1 % Ao root diam: 2.3 cm IVSd: 0.88 cm LVIDs: 3.3 cm EDV(Teich): 102.1 ml Ao root area: 4.2 cm2 LVPWd: 1.00 cm ESV(Teich): 45.1 ml EF(Teich): 55.8 % Doppler Measurements & Calculations MV E max joseph: MV dec slope: Ao V2 max: LV V1 max P.3 cm/sec 355.0 cm/sec2 100.8 cm/sec 3.1 mmHg MV A max joseph: MV dec time: 0.17 sec Ao max PG: LV V1 max: 87.7 cm/sec 4.1 mmHg 87.7 cm/sec MV E/A: 0.68 PA V2 max: TR max joseph: 101.4 cm/sec 221.0 cm/sec PA max P.1 mmHg TR max P.6 mmHg Left Ventricle The left ventricle is grossly normal size. There is borderline concentric left ventricular hypertrophy. Left ventricular systolic function is normal. The Ejection Fraction estimate is 55-60%. Doppler measurements suggest impaired left ventricular relaxation, which is associated with grade I/IV or mild diastolic dysfunction. Regional wall motion abnormalities cannot be excluded due to limited visualization. Right Ventricle The right ventricle is normal in size and function. Atria The right atrium is normal. The left atrial size is normal. Mitral Valve The mitral valve is grossly normal. There is no mitral regurgitation noted. Aortic Valve The aortic valve is trileaflet. The aortic valve opens well. The aortic valve is sclerotic, but shows no functional abnormality. There is no aortic valve stenosis. No aortic regurgitation is present. Tricuspid Valve The tricuspid valve is not well visualized, but is grossly normal. There is a trace amount of tricuspid regurgitation. Tricuspid regurgitation jet envelope not well defined to measure RV systolic pressure accurately. Doppler findings do not suggest pulmonary hypertension. Pulmonic Valve The pulmonic valve is not well visualized. The pulmonic valve is not well seen, but is grossly normal. There is a trace amount of pulmonic regurgitation. Great Vessels The aortic root is normal size. The IVC does not appear dilated but does not appear to have respiratory collapse which suggests significantly high central venous pressures. Effusions Minimal pericardial effusion. : ANA M HURD Anil
== END ==
LOC: SP 09:40
PROVIDERS: ATTEND Internal Medicine
DX: R06.09 Other forms of dyspnea (principal)
CPT/HCPCS: 93306

== ENCOUNTER 2019-11-16 15:13 | Emergency (ER) | payer MEDICARE, BC ==
[2019-11-16 15:20] VITALS: BP 152/52
[2019-11-16] MEDS ORDERED: CLINDAMYCIN 900 MG/D5W RTU 900 MG/50 ML RTUPB IV ONE (16:05)
--- NOTE | 2019-11-16 16:17 | ER Document Report ---
ED Extremity Problem, Lower - General Chief Complaint: Leg Pain Stated Complaint: RIGHT LEG PAIN Time Seen by Provider: 11/16/19 16:02 Primary Care Provider: ANA M MAXWELL MD [Primary Care Provider] - Follow up as needed Mode of Arrival: Ambulatory Information source: Patient, Relative Notes: Patient is a 74-year-old male comes emergency room stating that he has a history of lower extremity cellulitis. Patient states long time ago he nearly dry because he did not take care of it soon enough. States that yesterday he started with some discomfort on the back of his left thigh and this morning when he woke up he has some redness all the way around the knees and down the upper portion of the leg. Patient states he know this is how he presents with him he gets cellulitis since he is insulin-dependent diabetic and he wants to catch it before he gets bad. Patient denies any nausea vomiting temperature chest pain or shortness of breath. TRAVEL OUTSIDE OF THE [place] IN LAST 30 DAYS: No - HPI Patient complains to provider of: Swelling Location: Ankle, Leg, Thigh Occurred: Yesterday Where: Home Quality of pain: Achy Severity: Moderate Pain Level: 3 Recent injury: No Associated symptoms: denies: Chills, Fainting, Sweaty, Unable to bear weight, Weak Exacerbated by: Nothing - Related Data Allergies/Adverse Reactions: sulfamethoxazole [From Septra DS] Allergy (Mild, Verified 11/16/19 15:57) Pruritis trimethoprim [From Septra DS] Allergy (Mild, Verified 11/16/19 15:57) Pruritis codeine [Codeine] Allergy (Unknown, Verified 11/16/19 15:57) swelling Past Medical History - Social History Smoking Status: Never Smoker Chew tobacco use (# tins/day): No Drug Abuse: None Family History: None Patient has homicidal ideation: No - Past Medical History Cardiac Medical History: Reports: Hx Hypercholesterolemia, Hx Hypertension Pulmonary Medical History: Denies: Hx Asthma, Hx COPD Neurological Medical History: Denies: Hx Seizures Endocrine Medical History: Reports: Hx Diabetes Mellitus Type 2. Denies: Hx Diabetes Mellitus Type 1, Hx Hyperthyroidism Renal/ Medical History: Denies: Hx Peritoneal Dialysis GI Medical History: Denies: Hx Cirrhosis, Hx Hepatitis Musculoskeletal Medical History: Denies Hx Arthritis, Denies Hx Gout Skin Medical History: Reports Hx Eczema, Denies Hx Psoriasis Infectious Medical History: Denies: Hx Hepatitis Past Surgical History: Reports: Hx Orthopedic Surgery - left knee, bilateral rotator cuff - Immunizations Hx Diphtheria, Pertussis, Tetanus Vaccination: Yes Hx Pneumococcal Vaccination: 06/25/12 Review of Systems - Review of Systems Constitutional: No symptoms reported EENT: No symptoms reported Cardiovascular: No symptoms reported Respiratory: No symptoms reported Gastrointestinal: No symptoms reported Genitourinary: No symptoms reported Male Genitourinary: No symptoms reported Musculoskeletal: No symptoms reported Skin: See HPI, Rash Hematologic/Lymphatic: No symptoms reported Neurological/Psychological: No symptoms reported -: Yes All other systems reviewed and negative Physical Exam - Vital signs Vitals: Temp Pulse Resp BP Pulse Ox 98.5 F 89 18 152/52 H 100 11/16/19 15:18 11/16/19 15:18 11/16/19 15:18 11/16/19 15:18 11/16/19 15:18 Interpretation: Hypertensive Notes: PHYSICAL EXAMINATION: GENERAL: Well-appearing, well-nourished and in no acute distress. HEAD: Atraumatic, normocephalic. EYES: Pupils equal round and reactive to light, extraocular movements intact, sclera anicteric, conjunctiva are normal. ENT: Nares patent, oropharynx clear without exudates. Moist mucous membranes. NECK: Normal range of motion, supple without lymphadenopathy LUNGS: Breath sounds clear to auscultation bilaterally and equal. No wheezes rales or rhonchi. HEART: Regular rate and rhythm without murmurs ABDOMEN: Soft, nontender, nondistended abdomen. No guarding, no rebound. No masses appreciated. Musculoskeletal: Normal range of motion, no pitting or edema. No cyanosis. NEUROLOGICAL: Cranial nerves grossly intact. Normal speech, normal gait. Normal sensory, motor exams PSYCH: Normal mood, normal affect. SKIN: Warm, Dry, normal turgor, no rashes or lesions noted. - Notes Notes: PHYSICAL EXAMINATION: GENERAL: Well-appearing, well-nourished and in no acute distress. HEAD: Atraumatic, normocephalic. EYES: Pupils equal round and reactive to light, extraocular movements intact, sclera anicteric, conjunctiva are normal. ENT: Nares patent, oropharynx clear without exudates. Moist mucous membranes. NECK: Normal range of motion, supple without lymphadenopathy LUNGS: Breath sounds clear to auscultation bilaterally and equal. No wheezes rales or rhonchi. HEART: Regular rate and rhythm without murmurs Musculoskeletal: Normal range of motion, no pitting or edema. No cyanosis. NEUROLOGICAL: Normal speech, normal gait. Normal sensory, motor exams PSYCH: Normal mood, normal affect. SKIN: Examination patient very concerned he has his right upper thigh lower portion to anterior right leg. There is mild amount of erythema and blotchiness with faint redness noted in all areas. There is mild temperature change edward red to the left side. Cellulitis is definitely comparison. The lower extremity is 1-2+ edema which is patient has peripheral vascular disease and discoloration is there most of the time although it is increased over the last 24 hours. He displays 2+ dorsalis pedal pulse currently as well as a 2+ popliteal pulse. Course - Re-evaluation Re-evalutation: 11/16/19 17:35 Patient made an appoint from the beginning stating he wanted to go home. We did have a discussion that I informed him that if any of his labs were way out of normal that it we would be discussing admission. Since he is still afebrile and his white count is normal he has no other abnormal findings I am in a sending home on doxycycline and Keflex. Patient will get this filled first thing in the morning. He currently received here clindamycin 900 IV which will hold him until first thing in the morning. Patient is agreeable to this at this time as is his . - Vital Signs Vital signs: Temp Pulse Resp BP Pulse Ox 98.5 F 89 18 152/52 H 100 11/16/19 15:18 11/16/19 15:18 11/16/19 15:18 11/16/19 15:18 11/16/19 15:18 - Laboratory Result Diagrams: 11/16/19 16:15 11/16/19 16:15 Laboratory results interpreted by me: 11/16/19 16:15 BUN 25 H Glucose 213 H AST 65 H ALT 68 H Discharge - Discharge Clinical Impression: Cellulitis of right lower extremity Condition: Stable Disposition: HOME, SELF-CARE Instructions: Cellulitis ([facility]), MRSA Cellulitis [facility]) Additional Instructions: As we discussed go home today start the other antibiotics tomorrow. I am putting you want to to give us a good coverage. 1 is doxycycline 1 pill twice a day and 1 is Keflex 1 pill 4 times a day. As we discussed monitor this very closely if it starts to increase and spread rapidly return to ER at once. Do not sit back and we for the antibiotics to work it if it is expanding we need to have you in here on IV antibiotics. Prescriptions: Doxycycline Monohydrate 100 mg PO BID #20 tablet Cephalexin Monohydrate [Keflex 500 mg Capsule] 500 mg PO Q6H 5 Days capsule Forms: Elevated Blood Pressure Referrals: ANA M MAXWELL MD [Primary Care Provider] - Follow up as needed
[2019-11-16 16:36] LABS: ABSOLUTE EOSINOPHILS # (AUTO) 0.3 10^3/uL (0.0-0.6); ABSOLUTE LYMPHOCYTES (AUTO) 2.4 10^3/uL (0.5-4.7); ABSOLUTE MONOCYTES (AUTO) 0.9 10^3/uL (0.1-1.4); BASOPHILS % (AUTO) 0.5 % (0-2); EOSINOPHILS % (AUTO) 4.5 % (0-6); HEMATOCRIT 42.1 % (37.9-51.0); HEMOGLOBIN 14.4 g/dL (13.5-17.0); LYMPHOCYTES % (AUTO) 31.3 % (13-45); MEAN CORPUSCULAR HEMOGLOBIN 29.9 pg (27.0-33.4); MEAN CORPUSCULAR HGB CONC 34.3 g/dL (32.0-36.0); MEAN CORPUSCULAR VOLUME 87 fl (80-97); MONOCYTES % (AUTO) 11.3 % (3-13); PLATELET COUNT 220 10^3/uL (150-450); RED BLOOD COUNT 4.84 10^6/uL (4.35-5.55); RED CELL DISTRIBUTION WIDTH 13.4 % (11.5-14.0); SEGMENTED NEUTROPHILS % (AUTO) 52.4 % (42-78); TOTAL CELLS COUNTED % (AUTO) 100 %; WHITE BLOOD COUNT 7.6 10^3/uL (4.0-10.5)
[2019-11-16 16:51] LABS: ALBUMIN 4.3 g/dL (3.5-5.0); ALKALINE PHOSPHATASE 52 U/L (38-126); ANION GAP 10 (5-19); ASPARTATE AMINO TRANSFERASE 65 U/L (17-59); BILIRUBIN,DIRECT 0.2 mg/dL (0.0-0.4); BILIRUBIN,TOTAL 0.6 mg/dL (0.2-1.3); BLOOD UREA NITROGEN 25 mg/dL (7-20); CALCIUM 9.4 mg/dL (8.4-10.2); CARBON DIOXIDE 25 mmol/L (22-30); CHLORIDE 102 mmol/L (98-107); GLUCOSE 213 mg/dL (75-110); POTASSIUM 4.4 mmol/L (3.6-5.0); TOTAL PROTEIN 7.1 g/dL (6.3-8.2)
== END 2019-11-16 18:20 | disposition home or self-care (01) ==
LOC: ER 15:13
DX: L03.115 Cellulitis of right lower limb (principal); E78.00 Pure hypercholesterolemia, unspecified; I10 Essential (primary) hypertension; E11.9 Type 2 diabetes mellitus without complications
CPT/HCPCS: 99283; 96365; 36415; 87040; 85025; 80053; J3490

== ENCOUNTER 2020-02-18 10:56 | Emergency (ER) | payer MEDICARE, BC ==
--- NOTE | 2020-02-18 11:56 | ER Document Report ---
HPI - HPI Patient complains to provider of: right hand injury Time Seen by Provider: 02/18/20 11:52 Pain Level: 3 Notes: 34-year-old male to the emergency department with complaints of right hand pain and bruising that began after he accidentally got it caught in a car henson. He states he was working on a car when the car henson came down and latched. He is right-hand dominant. 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 Denies any other injuries. He takes a baby aspirin every day. He is on no other blood thinners. - CONSTITUTIONAL Constitutional: DENIES: Fever, Chills - EENT EENT: DENIES: Sore Throat, Ear Pain, Congestion - NEURO Neurology: DENIES: Headache - CARDIOVASCULAR Cardiovascular: DENIES: Chest pain - RESPIRATORY Respiratory: DENIES: Trouble Breathing, Coughing - GASTROINTESTINAL Gastrointestinal: DENIES: Abdominal Pain, Nausea, Patient vomiting, Diarrhea - MUSCULOSKELETAL Musculoskeletal: REPORTS: Extremity pain - Right hand pain with swelling - DERM Skin Color: Normal Notes: Right hand ecchymosis Past Medical History - General Information source: Patient - Social History Smoking Status: Never Smoker Frequency of alcohol use: None Drug Abuse: None Family History: None, Reviewed & Not Pertinent Patient has homicidal ideation: No - Past Medical History Cardiac Medical History: Reports: Hx Hypercholesterolemia, Hx Hypertension Pulmonary Medical History: Denies: Hx Asthma, Hx COPD Neurological Medical History: Denies: Hx Seizures Endocrine Medical History: Reports: Hx Diabetes Mellitus Type 2. Denies: Hx Diabetes Mellitus Type 1, Hx Hyperthyroidism Renal/ Medical History: Denies: Hx Peritoneal Dialysis GI Medical History: Denies: Hx Cirrhosis, Hx Hepatitis Musculoskeletal Medical History: Denies Hx Arthritis, Denies Hx Gout Skin Medical History: Reports Hx Eczema, Denies Hx Psoriasis Infectious Medical History: Denies: Hx Hepatitis Past Surgical History: Reports: Hx Orthopedic Surgery - left knee, bilateral rotator cuff - Immunizations Hx Diphtheria, Pertussis, Tetanus Vaccination: Yes Hx Pneumococcal Vaccination: 06/25/12 Vertical Provider Document - CONSTITUTIONAL Agree With Documented VS: Yes Exam Limitations: No Limitations General Appearance: WD/WN, Mild Distress Notes: Mild pain distress, holding right hand and guarding it. - INFECTION CONTROL TRAVEL OUTSIDE OF THE [place] IN LAST 30 DAYS: No - HEENT HEENT: Atraumatic, Normocephalic, PERRLA - NECK Neck: Normal Inspection, Supple - RESPIRATORY Respiratory: Breath Sounds Normal, No Respiratory Distress. negative: Rales, Rhonchi, Wheezing - CARDIOVASCULAR Cardiovascular: Regular Rate, Regular Rhythm, No Murmur - GI/ABDOMEN Gastrointestinal: Abdomen Soft, Abdomen Non-Tender, No Organomegaly - BACK Back: Normal Inspection - MUSCULOSKELETAL/EXTREMETIES Notes: There is tenderness to palpation over the dorsum of the right hand with noted ecchymosis and edema. There is no gross deformity. Handgrip is about a 4 out of 5 due to pain on the right side. Cap refill is less than 2 seconds in all fingers. He can extend and flex the fingers against resistance with 5 out of 5 strength in testing of both flexor tendons as well as extensor tendon. No snuffbox tenderness. No tenderness to palpation to the right elbow or right shoulder. - NEURO Level of Consciousness: Awake, Alert, Appropriate Motor/Sensory: No Motor Deficit, No Sensory Deficit - DERM Integumentary: Warm, Dry Course - Re-evaluation Re-evalutation: Impression: Right hand contusion. X-ray without evidence for fracture. Will still splint the hand for protection and for comfort. I have asked the patient if he would like any pain medicine for home use and he has declined it. We will have him follow-up with primary care and orthopedist. Patient agrees with the plan. Encouraged to return if worse. - Vital Signs Vital signs: Temp Pulse Resp BP Pulse Ox 98.0 F 90 16 169/56 H 98 02/18/20 11:00 02/18/20 11:00 02/18/20 11:00 02/18/20 11:00 02/18/20 11:00 - Diagnostic Test Radiology reviewed: Image reviewed, Reports reviewed Discharge - Discharge Clinical Impression: Hand pain, right Hand contusion Qualifiers: Encounter type: initial encounter Laterality: right Qualified Code(s): S60.221A - Contusion of right hand, initial encounter Condition: Stable Disposition: HOME, SELF-CARE Instructions: Contusion ([facility]), Ice & Elevation ([facility]) Additional Instructions: Keep hand splinted without fail. Elevate and ice the hand. Return if worsening pain, redness, fevers. FOllow up with primary care in one week. Follow up with orthopedist. Referrals: ELOISA ARAGON PA-C [NO LOCAL MD] - Follow up in 3-5 days SARATH CAMEJO JR, DO [ACTIVE PROVISIONAL STAFF] - Follow up in 1 week (for orthopedic follow up)
--- NOTE | 2020-02-18 13:29 | RADIOLOGY REPORT (SQ) ---
EXAM DESCRIPTION: HAND RIGHT 3 VIEWS IMAGES COMPLETED DATE/TIME: 02/18/2020 1:06 pm REASON FOR STUDY: right hand injury COMPARISON: None. EXAM PARAMETERS: NUMBER OF VIEWS: Three views. TECHNIQUE: AP, lateral and oblique radiographic images acquired of the right hand. LIMITATIONS: Examination is limited due to positioning. FINDINGS: MINERALIZATION: Normal. BONES: No acute fracture or dislocation. No worrisome bone lesions. JOINTS: No effusions. SOFT TISSUES: No soft tissue swelling. No foreign body. OTHER: No other significant finding. IMPRESSION: 1. Examination is limited as above. No acute osseous findings. TECHNICAL DOCUMENTATION: JOB ID: [id number] 2010 [employer]- All Rights Reserved Reading location - IP/workstation name: [email or web address]
[2020-02-18 13:49] VITALS: BP 145/61
== END 2020-02-18 13:55 | disposition home or self-care (01) ==
LOC: ER 10:56
PROC: 2W3CX1Z Immobilization of Right Lower Arm using Splint (ICD-10-PCS; principal; 2020-02-18)
DX: S60.221A Contusion of right hand, initial encounter (principal); M79.641 Pain in right hand; M79.89 Other specified soft tissue disorders; W22.8XXA Striking against or struck by other objects, initial encounter; I10 Essential (primary) hypertension; E11.9 Type 2 diabetes mellitus without complications
CPT/HCPCS: 99283

== ENCOUNTER 2020-03-30 16:47 | Emergency (ER) | payer MEDICARE, BC ==
--- NOTE | 2020-03-30 17:33 | ER Document Report ---
ED Medical Screen (RME) - General Chief Complaint: Chest Pain Stated Complaint: CHEST PAIN Time Seen by Provider: 03/30/20 17:26 Primary Care Provider: GLORIA THACKER PA-C [Primary Care Provider] - Follow up as needed Notes: HPI: 74-year-old male with history of heart failure diabetes hypertension presenting for 2 to 3 weeks of increasing shortness of breath more exertional in nature. Patient did have some chest discomfort which he believed to be indigestion 4 days ago none today. Patient does not specifically relate onset of chest discomfort with the shortness of breath or exertional activities. He follows with Dr. Vickey constantino. Has not seen him since June of last year. Patient did speak with his primary care provider today and they told him to come to the emergency department to be evaluated as they were concerned about heart failure. He reports that he has had some increased swelling of both legs recently PHYSICAL EXAMINATION: 1+ pitting edema bilateral lower extremities. Lung sounds are decreased, more so on the right posterior base. Patient with a regular rate and rhythm. I have greeted and performed a rapid initial assessment of this patient. A comprehensive ED assessment and evaluation of the patient, analysis of test results and completion of medical decision making process will be conducted by an additional ED providers. TRAVEL OUTSIDE OF THE [place] IN LAST 30 DAYS: No - Related Data Allergies/Adverse Reactions: sulfamethoxazole [From Septra DS] Allergy (Mild, Verified 03/30/20 17:24) Pruritis trimethoprim [From Septra DS] Allergy (Mild, Verified 03/30/20 17:24) Pruritis codeine [Codeine] Allergy (Unknown, Verified 03/30/20 17:24) swelling Past Medical History - Past Medical History Cardiac Medical History: Reports: Hx Hypercholesterolemia, Hx Hypertension Pulmonary Medical History: Denies: Hx Asthma, Hx COPD Neurological Medical History: Denies: Hx Seizures Endocrine Medical History: Reports: Hx Diabetes Mellitus Type 2. Denies: Hx Diabetes Mellitus Type 1, Hx Hyperthyroidism Renal/ Medical History: Denies: Hx Peritoneal Dialysis GI Medical History: Denies: Hx Cirrhosis, Hx Hepatitis Musculoskeltal Medical History: Denies Hx Arthritis, Denies Hx Gout Skin Medical History: Reports Hx Eczema, Denies Hx Psoriasis Infectious Medical History: Denies: Hx Hepatitis Past Surgical History: Reports: Hx Orthopedic Surgery - left knee, bilateral rotator cuff - Immunizations Hx Diphtheria, Pertussis, Tetanus Vaccination: Yes Physical Exam - Vital signs Vitals: Temp Pulse Resp BP Pulse Ox 98.4 F 79 20 157/69 H 96 03/30/20 16:59 03/30/20 16:59 03/30/20 16:59 03/30/20 16:59 03/30/20 16:59 Course - Vital Signs Vital signs: Temp Pulse Resp BP Pulse Ox 98.4 F 79 20 157/69 H 96 03/30/20 16:59 03/30/20 16:59 03/30/20 16:59 03/30/20 16:59 03/30/20 16:59 Doctor's Discharge - Discharge Referrals: GLORIA THACKER PA-C [Primary Care Provider] - Follow up as needed
--- NOTE | 2020-03-30 17:58 | EKG REPORT ---
SEVERITY:- ABNORMAL ECG - SINUS RHYTHM INCOMPLETE RIGHT BUNDLE BRANCH BLOCK : Confirmed by: Tony Souza 30-Mar-2020 17:57:33
--- NOTE | 2020-03-30 18:37 | RADIOLOGY REPORT (SQ) ---
EXAM DESCRIPTION: CHEST SINGLE VIEW IMAGES COMPLETED DATE/TIME: 03/30/2020 5:40 pm REASON FOR STUDY: sob COMPARISON: 08/28/2013 EXAM PARAMETERS: NUMBER OF VIEWS: One view. TECHNIQUE: Single frontal radiographic view of the chest acquired. RADIATION DOSE: NA LIMITATIONS: None. FINDINGS: LUNGS AND PLEURA: Chronic slight prominent interstitial markings in the lower lung zones. No acute pulmonary consolidation. No pneumothorax or pleural effusion. MEDIASTINUM AND HILAR STRUCTURES: No masses. Contour normal. HEART AND VASCULAR STRUCTURES: Cardiomegaly, stable finding. Normal vasculature. BONES: No acute findings. HARDWARE: None in the chest. OTHER: No other significant finding. IMPRESSION: 1. No acute pulmonary findings. 2. Cardiomegaly. No evidence for failure. TECHNICAL DOCUMENTATION: JOB ID: [id number] 2010 [employer]- All Rights Reserved Reading location - IP/workstation name: [email or web address]
[2020-03-30 18:44] LABS: ABSOLUTE BASOPHILS # (AUTO) 0.1 10^3/uL (0.0-0.2); ABSOLUTE EOSINOPHILS # (AUTO) 0.6 10^3/uL (0.0-0.6); ABSOLUTE MONOCYTES (AUTO) 1.4 10^3/uL (0.1-1.4); ABSOLUTE NEUT (AUTO) 7.3 10^3/uL (1.7-8.2); BASOPHILS % (AUTO) 0.6 % (0-2); EOSINOPHILS % (AUTO) 3.9 % (0-6); HEMATOCRIT 43.6 % (37.9-51.0); HEMOGLOBIN 14.7 g/dL (13.5-17.0); LYMPHOCYTES % (AUTO) 34.7 % (13-45); MEAN CORPUSCULAR HEMOGLOBIN 29.1 pg (27.0-33.4); MEAN CORPUSCULAR HGB CONC 33.6 g/dL (32.0-36.0); MEAN CORPUSCULAR VOLUME 87 fl (80-97); MONOCYTES % (AUTO) 9.6 % (3-13); PLATELET COUNT 271 10^3/uL (150-450); RED BLOOD COUNT 5.04 10^6/uL (4.35-5.55); RED CELL DISTRIBUTION WIDTH 14.3 % (11.5-14.0); SEGMENTED NEUTROPHILS % (AUTO) 51.2 % (42-78); TOTAL CELLS COUNTED % (AUTO) 100 %; WHITE BLOOD COUNT 14.3 10^3/uL (4.0-10.5)
[2020-03-30 18:47] LABS: APPEARANCE,URINE CLEAR; BILIRUBIN,URINE NEGATIVE (NEGATIVE); COLOR,URINE STRAW; GLUCOSE, URINE NEGATIVE (NEGATIVE); KETONES,URINE NEGATIVE (NEGATIVE); LEUKOCYTE ESTERASE,URINE NEGATIVE (NEGATIVE); NITRITE,URINE NEGATIVE (NEGATIVE); PROTEIN,URINE NEGATIVE (NEGATIVE); URINE SPECIFIC GRAVITY 1.012; UROBILINOGEN,URINE NEGATIVE mg/dL (<2.0)
[2020-03-30 19:02] LABS: ALBUMIN 4.6 g/dL (3.5-5.0); ALKALINE PHOSPHATASE 53 U/L (38-126); ANION GAP 9 (5-19); ASPARTATE AMINO TRANSFERASE 36 U/L (17-59); BILIRUBIN,DIRECT 0.1 mg/dL (0.0-0.4); BILIRUBIN,TOTAL 0.4 mg/dL (0.2-1.3); BLOOD UREA NITROGEN 33 mg/dL (7-20); CALCIUM 10.8 mg/dL (8.4-10.2); CARBON DIOXIDE 29 mmol/L (22-30); CHLORIDE 101 mmol/L (98-107); GLUCOSE 93 mg/dL (75-110); POTASSIUM 4.7 mmol/L (3.6-5.0); TOTAL PROTEIN 7.6 g/dL (6.3-8.2)
[2020-03-30 19:14] LABS: NT PRO BNP 25 pg/mL (<125)
[2020-03-30 19:15] LABS: TROPONIN I < 0.012 ng/mL
--- NOTE | 2020-03-30 23:02 | RADIOLOGY REPORT (SQ) ---
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 TECHNIQUE: Postcontrast CT through the chest was performed per protocol for CT angiography. 3D Multiplanar reformations were performed at the workstation. Reconstructed sagittal and coronal images were also obtained through the chest. This exam was performed according to our departmental dose-optimization program, which includes automated exposure control, adjustment of the mA and/or KV according to the patient's size and/or use of iterative reconstruction technique. COMPARISON: None available FINDINGS: The heart size is enlarged. No large pericardial effusion is seen. No significant mediastinal, supraclavicular, or axillary lymphadenopathy is seen. The thoracic aorta is within normal limits of size. No filling defects are seen within the pulmonary arteries to suggest a pulmonary artery embolism. The main pulmonary artery is enlarged and measures at least 3.1 cm in transverse dimension. The thyroid gland is unremarkable. The central tracheobronchial tree is patent. No focal consolidative airspace opacity is seen. No discrete pleural effusion is seen. There is no evidence of a pneumothorax. The bones demonstrate no suspicious lytic or blastic lesion. Multilevel degenerative changes are seen within the thoracic spine. A small hiatal hernia is present. The visualized portions of hepatic parenchyma are diffusely low in attenuation. IMPRESSION: No acute airspace opacities are seen. No filling defect is seen to suggest a pulmonary artery embolism. The main pulmonary artery is enlarged, which can be seen with pulmonary hypertension.
--- NOTE | 2020-03-31 02:19 | ER Document Report ---
ED General - General Chief Complaint: Chest Pain Stated Complaint: CHEST PAIN Time Seen by Provider: 03/30/20 17:26 Primary Care Provider: GLORIA THACKER PA-C [Primary Care Provider] - Follow up as needed Mode of Arrival: Ambulatory Information source: Patient Notes: This 74-year-old male presents to the emergency department with a history of shortness of breath episodes which are mainly related with exertion. He has history of COPD, history of morbid obesity, history of diabetes mellitus. TRAVEL OUTSIDE OF THE [place] IN LAST 30 DAYS: No - Related Data Allergies/Adverse Reactions: sulfamethoxazole [From Septra DS] Allergy (Mild, Verified 03/30/20 17:24) Pruritis trimethoprim [From Septra DS] Allergy (Mild, Verified 03/30/20 17:24) Pruritis codeine [Codeine] Allergy (Unknown, Verified 03/30/20 17:24) swelling Home Medications: gabapentin, venlafaxine, metformin, furosemide, asa, ezetimide, tamsuosin, novolog Past Medical History - Social History Smoking Status: Current Every Day Smoker Chew tobacco use (# tins/day): No Frequency of alcohol use: None Drug Abuse: None Family History: None, Reviewed & Not Pertinent - Past Medical History Cardiac Medical History: Reports: Hx Hypercholesterolemia, Hx Hypertension Pulmonary Medical History: Reports: Hx COPD Denies: Hx Asthma Neurological Medical History: Denies: Hx Seizures Endocrine Medical History: Reports: Hx Diabetes Mellitus Type 2. Denies: Hx Diabetes Mellitus Type 1, Hx Hyperthyroidism Renal/ Medical History: Denies: Hx Peritoneal Dialysis GI Medical History: Denies: Hx Cirrhosis, Hx Hepatitis Musculoskeletal Medical History: Denies Hx Arthritis, Denies Hx Gout Skin Medical History: Reports Hx Eczema, Denies Hx Psoriasis Infectious Medical History: Denies: Hx Hepatitis Past Surgical History: Reports: Hx Orthopedic Surgery - left knee, bilateral rotator cuff - Immunizations Hx Diphtheria, Pertussis, Tetanus Vaccination: Yes Hx Pneumococcal Vaccination: 06/25/12 Review of Systems - Review of Systems Notes: Constitutional: Negative for fever. HENT: Negative for sore throat. Eyes: Negative for visual changes. Cardiovascular: Negative for chest pain. Respiratory: See HPI Gastrointestinal: Negative for abdominal pain, vomiting or diarrhea. Genitourinary: Negative for dysuria. Musculoskeletal: Negative for back pain. Skin: Negative for rash. Neurological: Negative for headaches, weakness or numbness. 10 point ROS negative except as marked above and in HPI. Physical Exam - Vital signs Vitals: Temp Pulse Resp BP Pulse Ox 98.4 F 79 20 157/69 H 96 03/30/20 16:59 03/30/20 16:59 03/30/20 16:59 03/30/20 16:59 03/30/20 16:59 - Notes Notes: PHYSICAL EXAMINATION: Physical Exam: General: Overweight weight 74-year-old in no acute distress HEENT: NC/AT, pupils equal round and reactive to light, MM moist,nares clear, oropharynx clear, airway patent Neck: supple, no adenopathy, no masses. Good range of motion Lungs: clear, no wheezing, no rales no rhonchi CVS: Regular rate and rhythm no murmur gallop or rub Abdomen: Soft, active, nontender, no masses, no hepatosplenomegaly Ext: Trace bilateral edema, no cyanosis. Neuro: Alert and responsive, moving all 4 extremities on command, cranial nerves intact, no focal findings Skin: Intact no open lesions, no rash Course - Re-evaluation Re-evalutation: 03/30/20 04:18 patient is in no distress and at rest his symptoms are nonexistent. He states that when he attempts to exert himself he is feeling short of breath. His edema has improved and clinically oxygen saturation on room air within the normal range. The patient's care does not reveal an acute coronary or acute pulmonary finding. The CTA with pulmonary artery dilatation and the patient's history of exertional dyspnea is suggestive of pulmonary hypertension. I have discussed this findings with the patient and suggested that he follow-up with a equipment service engineer for evaluation of his dyspnea and to co ntinue the present medications. The patient and his significant other are in agreement with this plan and are ready to be discharged. - Vital Signs Vital signs: Temp Pulse Resp BP Pulse Ox 97.9 F 79 16 134/52 H 96 03/31/20 03:07 03/30/20 16:59 03/31/20 03:07 03/31/20 03:07 03/31/20 03:07 - Laboratory Results Result Diagrams: 03/30/20 18:22 03/30/20 18:22 Laboratory Results Interpreted: 12/08/20 12/08/20 18:22 18:22 WBC 14.3 H RDW 14.3 H Absolute Lymphs (auto) 5.0 H BUN 33 H Est GFR (MDRD) Non-Af 58 L Calcium 10.8 H Critical Laboratory Results Reviewed: No Critical Results - Radiology Results Radiology Results Interpreted: 03/31/20 02:16 Chest X-Ray 03/30/20 17:31 IMPRESSION: 1. No acute pulmonary findings. 2. Cardiomegaly. No evidence for failure. Chest/Abdomen CTA 03/30/20 20:51 IMPRESSION: No acute airspace opacities are seen. No filling defect is seen to suggest a pulmonary artery embolism. The main pulmonary artery is enlarged, which can be seen with pulmonary hypertension. Critical Radiology Results Reviewed: No Critical Results - EKG Interpretation by Me Rate: Normal - EKG interpreted by Dr. Goodrich: Normal sinus rhythm, rate 79, NC interval 208 ms, QT interval 368 ms, 1degree AV block,ICRBBB, LAD,no ischemic findings, compared to EKG dated 04/03/18, no acute interval changes. I nterpretation Abnormal EKG Discharge - Discharge Clinical Impression: Shortness of breath, Pulmonary hypertension, Morbid obesity with BMI of 40.0- 44.9, adult, Diabetes mellitus type 2 in obese Condition: Good Disposition: HOME, SELF-CARE Instructions: Dyspnea, Nonspecific ([facility]) Additional Instructions: You were seen in the emergency department tonight with shortness of breath episodes with exertion. Evaluation of your x-rays labs and CT scan revealed findings suggestive of pulmonary hypertension. You should follow-up with your equipment service engineer regarding this diagnosis and the shortness of breath. There is a specific treatment and further evaluation would need to be performed before that treatment is started. Your symptoms are worsening or if you have other concerns you may return to the emergency department for further evaluation and treatment HOME CARE INSTRUCTIONS & INFORMATION: Thank you for choosing us for your medical needs. We hope you're satisfied with the care you received. After you leave, you must properly care for your problem and, at the same time, observe its progress. Any condition can change. Some illnesses can change rapidly over hours or days. If your condition worsens, return to the Emergency Department or see your physician promptly. ABOUT YOUR X-RAYS AND EKG'S: If you had an EKG or X-rays taken, they have been read by the Emergency Physician. The X-rays and EKG's will also be read by a Radiologist or Superior Court Judge within 24 hours. If discrepancies are noted, you will be notified by telephone. Please be certain the ED has a correct telephone number & address where you can be reached. Also, realize that some fractures or abnormalities do not show up on initial X-rays. If your symptoms continue, see your physician. ABOUT YOUR LABORATORY TEST: If you had laboratory tests, the results have been reviewed by the Emergency Physician. Some test results (for example cultures) may not be available for several days. You will be contacted if any test result shows you need additional treatment. Please be certain the ED has a correct telephone number and address where you can be reached. ABOUT YOUR MEDICATIONS: You will receive instructions on how to take your med icine on the prescription label you receive. Additional information may be provided by the Pharmacy. If you have questions afterwards, call the ED for clarification or further instructions. Some prescribed medications may cause drowsiness. Do not perform tasks such as driving a car or operating machinery without consulting your Pharmacist. If you feel you need a refill of pain medication, your condition will need re-evaluation. Please do not call for a refill of any medication. ABOUT YOUR SIGNATURE: Signature of this document acknowledges to followin. Understanding that you received emergency treatment and that you may be released before al medical problems are known or treated. Please be certain the ED has a correct phone number & address where you can be reached. 2. Acknowledgement that you will arrange for follow-up care as recommended. 3. Authorization for the Emergency Physician to provide information to your follow-up Physician in order to maximize your care. AT ANY TIME, IF YOUR SYMPTOMS CHANGE SIGNIFICANTLY OR WORSEN OR YOU DEVELOP NEW SYMPTOMS, RETURN TO THE EMERGENCY DEPARTMENT IMMEDIATELY FOR RE-EVALUATION. OUR GOAL IS TO PROVIDE EXCELLENT MEDICAL CARE! WE HOPE THAT WE HAVE MET YOUR EXPECTATIONS DURING YOUR EMERGENCY DEPARTMENT VISIT AND THAT YOU FEEL YOU HAVE RECEIVED EXCELLENT CARE! Referrals: GLORIA THACKER PA-C [Primary Care Provider] - Follow up as needed
[2020-03-31 04:46] VITALS: BP 134/52
== END 2020-03-31 03:15 | disposition home or self-care (01) ==
LOC: ER 16:47
DX: R06.02 Shortness of breath (principal); I27.20 Pulmonary hypertension, unspecified; E11.9 Type 2 diabetes mellitus without complications; E66.01 Morbid (severe) obesity due to excess calories; Z68.41 Body mass index [BMI] 40.0-44.9, adult; R07.9 Chest pain, unspecified; F17.200 Nicotine dependence, unspecified, uncomplicated; E78.00 Pure hypercholesterolemia, unspecified; I10 Essential (primary) hypertension
CPT/HCPCS: 36415; 71045; 71275; 80053; 81001; 83880; 84484; 85025; 93005; 93010; 99285

== ENCOUNTER → 2020-04-26 | Outpatient (CLI) | payer MEDICARE, BC ==
[~2020-04-26] MED LIST: REGADENOSON INJ 0.4 MG/5 ML DISP.SYRIN IV ONE
--- NOTE | 2020-04-26 12:37 | DRAGON STRESS TEST REPORT ---
Pharmacological nuclear stress test Date: April 26, 2020 Referring physician: Jenifer Zhang PA-C. Performing physician: Roberto Hurd MD Indication: Chest pain Clinical history 74-year-old male with medical history significant for systemic hypertension dyslipidemia diabetes mellitus and obesity who presented to the office with complaints of chest pain as well as dyspnea. We decided to proceed with a pharmacological nuclear stress test. Procedure The patient presented to the stress lab. Initially rest images were obtained according to standard protocol after the injection of of 14.72 millicurie technetium 99m sestamibi. Subsequently the patient underwent pharmacological stress utilizing 0.4 mg of regadenoson intravenously. The patient's EKG and vital signs were monitored throughout the procedure. Subsequently patient was injected with 44.9 millicuries of technetium 99m sestamibi. After a period of rest, stress images were obtained according to standard protocol. EKG showed sinus rhythm with right bundle branch block at 83 beats per minute. The patient's stress EKG did not show any evidence for myocardial ischemia. There were no arrhythmias observed. Raw as well as processed rest and stress images were reviewed. There was mild to moderate gut uptake which did not interfere with the study. The rest and stress images show uniform uptake of radioactive isotope without no reversible defects to suggest myocardial ischemia. There is a small, mildly to moderately intense predominantly fixed defect in the basal inferior wall. This could be suggestive of diaphragmatic attenuation or scar but the wall motion in that area is preserved which favors diaphragmatic attenuation. There is normal contractility post-stress. The calculated ejection fraction is 60 %. The TID ratio is 1.10. Conclusion The stress EKG is negative for myocardial ischemia There is no scintigraphic evidence of myocardial infarction or ischemia provoked by pharmacological stress. There is normal contractility post-stress. The gated left ventricular ejection fraction is 60%. The patient will be given an appointment to discuss these results. [facility]
== END ==
LOC: RAD 07:48
PROVIDERS: ATTEND Internal Medicine
DX: R07.9 Chest pain, unspecified (principal); I25.9 Chronic ischemic heart disease, unspecified; I10 Essential (primary) hypertension
CPT/HCPCS: 93017; 78452; A9500; J2785; Q9969

== ENCOUNTER → 2020-05-17 | Outpatient (CLI) | payer MEDICARE, BC ==
--- NOTE | 2020-05-17 15:41 | RADIOLOGY REPORT (SQ) ---
EXAM DESCRIPTION: VENOUS UNILATERAL LOWER IMAGES COMPLETED DATE/TIME: 05/17/2020 2:45 pm REASON FOR STUDY: RLE PAIN/SWELLING I82.401 ACUTE EMBOLISM AND THOMBOS UNSP DEEP VEINS OF R LOW COMPARISON: None. TECHNIQUE: Dynamic and static wang scale and color images acquired of the right leg venous system. S elected spectral images acquired with additional compression and augmentation maneuvers. The contrala teral common femoral vein and saphenofemoral junction were also imaged. Images stored on PACS. LIMITATIONS: None. FINDINGS: COMMON FEMORAL: Normal phasicity, compression and augmentation. No visualized echogenic ma terial on wang scale. No defects on color images. FEMORAL: Normal compression and augmentation. No visualized echogenic material on wang scale. No defe cts on color images. POPLITEAL: Normal compression, augmentation. No visualized echogenic material on wang scale. No defec ts on color images. CALF VESSELS: Normal compression, augmentation. No visualized echogenic material on wang scale. No de fects on color images. GSV and SSV: Normal compression, augmentation. No visualized echogenic material on wang scale. No def ects on color images. ANY DEEP VENOUS INSUFFICIENCY: No. ANY EVIDENCE OF POPLITEAL CYST: No. OTHER: No other findings. CONTRALATERAL COMMON FEMORAL VEIN AND SAPHENOFEMORAL JUNCTION: Normal phasicity, compression and augmentation. No visualized echogenic material on wang scale. No de fects on color images. IMPRESSION: NO EVIDENCE OF DVT OR SVT IN THE RIGHT LEG. TECHNICAL DOCUMENTATION: JOB ID: [id number] 2010 [employer]- All Rights Reserved Reading location - IP/workstation name: [email or web address]
== END ==
LOC: SP 12:40
PROVIDERS: ATTEND Podiatrist Foot & Ankle Surgery
DX: I82.401 Acute embolism and thrombosis of unspecified deep veins of right lower extremity (principal)
CPT/HCPCS: 93971